=== PATIENT | male | born 1965 | race African-American/Black ===

== ENCOUNTER 2016-07-31 08:22 | Observation (INO) | payer OTHER ==
[2016-07-31] MEDS ORDERED: Aspirin Low Dose CHEW TAB* 81 MG PO ONE (09:14)
--- NOTE | 2016-07-31 09:28 | RAD ---
Indication: Chest pain, shortness of breath. Episodic hot flashes. Comparison: March 27, 2016 Technique: Upright AP 0910 hours Report: Minimal linear atelectasis at the LEFT lung base. Negative for pleural effusion or pneumothorax. Top normal heart size accounting for AP technique. Unremarkable central pulmonary vasculature and mediastinal contours. IMPRESSION: Minimal LEFT basilar atelectasis.
[2016-07-31] MEDS ORDERED: NS 0.9% 1000 ML* 1,000 ML IV SCH (09:45)
[2016-07-31 09:59] LABS: Hematocrit 49 % (42-52); Hemoglobin 16.2 g/dl (14.0-18.0); Mean Corpuscular HGB Conc 33 g/dl (31-36); Mean Corpuscular Hemoglobin 28 pg (27-31); Mean Corpuscular Volume 85 fL (80-94); Mean Platelet Volume 9 um3 (7.4-10.4); Red Blood Count 5.78 10^6/ul (4.0-5.4); Red Cell Distribution Width 14 % (10.5-15); White Blood Count 7.3 10^3/ul (3.5-10.8)
[2016-07-31 10:13] LABS: Albumin 4.1 g/dL (3.2-5.2); BUN/Creatinine Ratio 16.2 (8-20); C Reactive Protein 4.69 mg/L (< 5.00); Calcium 9.1 mg/dL (8.6-10.3); EGFR African American 85.2 (>60); EGFR Non-African American 66.3 (>60); Globulin 3.1 g/dL (2-4); Magnesium 2.3 mg/dL (1.9-2.7); Potassium 3.8 mmol/L (3.5-5.0); Total Bilirubin 0.4 mg/dL (0.2-1.0); Total Protein 7.2 g/dL (6.4-8.9)
[2016-07-31 10:14] LABS: Troponin I 0.01 ng/mL (<0.04)
[2016-07-31 10:43] LABS: TSH (Thyroid Stimulating Horm) 0.72 mcIU/mL (0.34-5.60)
[2016-07-31] MEDS ORDERED: Acetaminophen TAB* 325 MG PO PRN (12:04)
[2016-07-31] MEDS ORDERED: Ondansetron INJ* 2 MG/ML VIAL IV PRN (12:04)
[2016-07-31 12:22] LABS: Urine Bilirubin Negative (Negative); Urine Glucose Negative (Negative); Urine Nitrite Negative (Negative)
--- NOTE | 2016-07-31 15:26 | ED ---
Andrew Bolanos Adam, scribed for Tejinder Johnson MD on 07/31/16 at 0858 . Shortness of Breath - HPI Summary HPI Summary: Pt is a 50 year old male presenting with SOB for the past week. He states that he has been getting more short of breath than usual during light exertion. Yesterday he began experiencing pressure in the left side of his chest that radiates to his left shoulder. The CP has been intermittent, lasting up to 15 minutes. He last felt the CP this morning between 05:00 and 06:00. Pt also c/o intermittent episodes of diaphoresis and palpitations (pounding/racing) that do not seem to be triggered by anything. He also c/o increased fatigue recently and an episode of near syncope several days ago. He denies any fever, chills, diarrhea, constipation, numbness, cough, illness, or edema. Pt has a Hx of GERD but he states that this chest pressure feels different from his usual GERD sx. No Hx of blood clots or DM. FMHx of ME and palpitations. No FMHx of cardiac disease. No tobacco use. - History of Current Complaint Chief Complaint: EDShortnessOfBreath Time Seen by Provider: 07/31/16 08:34 Hx Obtained From: Patient Onset/Duration: Gradual Onset, Lasting Days, Still Present Timing: Constant Current Severity: Moderate Dyspnea At: Exertion Aggrevating Factors: Movement - Light exertion Alleviating Factors: Nothing Associated Signs & Symptoms: Chest Pain Unrelated to Cough, Diaphoresis - Allergy/Home Medications Allergies/Adverse Reactions: Allergies Allergy/AdvReac Type Severity Reaction Status Date / Time No Known Allergies Allergy Verified 07/31/16 08:23 Home Medications: Home Medications Aspirin TAB* 325 mg PO DAILY PRN 07/31/16 [History Confirmed 07/31/16] Omeprazole CAP* [Prilosec CAP* 20 MG] 20 mg PO DAILY 07/31/16 [History Confirmed 07/31/16] PMH/Surg Hx/FS Hx/Imm Hx Endocrine/Hematology History: Denies: Hx Diabetes, Hx Thyroid Disease Cardiovascular History: Reports: Hx Angina, Hx Hypercholesterolemia, Other Cardiovascular Problems/Disorders - HIGH CHOLESTEROL Denies: Hx Hypertension Respiratory History: Denies: Hx Asthma, Hx Chronic Obstructive Pulmonary Disease (COPD) GI History: Reports: Hx Gastroesophageal Reflux Disease Denies: Hx Ulcer Sensory History: 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 Denies: Hx Contacts or Glasses Opthamlomology History: Denies: Hx Contacts or Glasses Psychiatric History: Denies: Hx Substance Abuse - denies - Cancer History Cancer Type, Location and Year: allergies - Surgical History Surgery Procedure, Year, and Place: nose surgery - polyps removed Infectious Disease History: No Infectious Disease History: Denies: Hx Hepatitis, Hx Human Immunodeficiency Virus (HIV), Traveled Outside the [place] in Last 30 Days - Family History Known Family History: Positive: Cardiac Disease - [place] (uncle) - Social History Occupation: Employed Full-time Lives: Alone Alcohol Use: Weekly Alcohol Amount: weekends Hx Substance Use: No Substance Use Type: Reports: None Hx Tobacco Use: No Smoking Status (MU): Never Smoked Tobacco Review of Systems Positive: Fatigue, Skin Diaphoresis. Negative: Fever, Chills Positive: Palpitations, Chest Pain Positive: Shortness Of Breath. Negative: Cough Negative: Diarrhea Negative: Edema Positive: Syncope - Near syncope several days ago. Negative: Numbness All Other Systems Reviewed And Are Negative: Yes Physical Exam Triage Information Reviewed: Yes Vital Signs On Initial Exam: Initial Vitals Temp Pulse Resp BP Pulse Ox 98.3 F 66 18 152/100 99 07/31/16 08:24 07/31/16 08:24 07/31/16 08:24 07/31/16 08:24 07/31/16 08:24 Vital Signs Reviewed: Yes Appearance: Positive: Well-Appearing, No Pain Distress Skin: Positive: Warm, Skin Color Reflects Adequate Perfusion, Dry Head/Face: Positive: Normal Head/Face Inspection Eyes: Positive: EOMI, MARIA E ENT: Positive: Normal ENT inspection Neck: Positive: Supple, Nontender Respiratory/Lung Sounds: Positive: Clear to Auscultation, Breath Sounds Present Cardiovascular: Positive: RRR Abdomen Description: Positive: Soft, Other: - Mild tenderness in the epigastrium Bowel Sounds: Positive: Present Musculoskeletal: Positive: Normal, Strength/ROM Intact Neurological: Positive: Normal, Sensory/Motor Intact, Alert, Oriented to Person Place, Time Psychiatric: Positive: Affect/Mood Appropriate Diagnostics - Vital Signs Vital Signs Temp Pulse Resp BP Pulse Ox 07/31/16 08:24 98.3 F 66 18 152/100 99 - Laboratory Lab Results: Lab Results 07/31/16 07/31/16 07/31/16 Range/Units 09:45 09:45 09:45 WBC 7.3 (3.5-10.8) 10^3/ul RBC 5.78 H (4.0-5.4) 10^6/ul Hgb 16.2 (14.0-18.0) g/dl Hct 49 (42-52) % MCV 85 (80-94) fL MCH 28 (27-31) pg MCHC 33 (31-36) g/dl RDW 14 (10.5-15) % Plt Count 224 (150-450) 10^3/ul MPV 9 (7.4-10.4) um3 Neut % (Auto) 56.4 (38-83) % Lymph % (Auto) 30.4 (25-47) % Pratt % (Auto) 10.4 H (1-9) % Eos % (Auto) 1.9 (0-6) % Baso % (Auto) 0.9 (0-2) % Absolute Neuts (auto) 4.1 (1.5-7.7) 10^3/ul Absolute Lymphs (auto) 2.2 (1.0-4.8) 10^3/ul Absolute Monos (auto) 0.8 (0-0.8) 10^3/ul Absolute Eos (auto) 0.1 (0-0.6) 10^3/ul Absolute Basos (auto) 0.1 (0-0.2) 10^3/ul Absolute Nucleated RBC 0.01 10^3/ul Nucleated RBC % 0.2 INR (Anticoag Therapy) 0.98 (0.89-1.11) APTT 23.6 L (26.0-36.3) seconds D-Dimer, Quantitative < 200 (Less Than 230) ng/mL Sodium 136 (133-145) mmol/L Potassium 3.8 (3.5-5.0) mmol/L Chloride 106 (101-111) mmol/L Carbon Dioxide 24 (22-32) mmol/L Anion Gap 6 (2-11) mmol/L BUN 19 (6-24) mg/dL Creatinine 1.17 (0.67-1.17) mg/dL Est GFR ( Amer) 85.2 (>60) Est GFR (Non-Af Amer) 66.3 (>60) BUN/Creatinine Ratio 16.2 (8-20) Glucose 97 (70-100) mg/dL Lactic Acid (0.5-2.0) mmol/L Calcium 9.1 (8.6-10.3) mg/dL Magnesium 2.3 (1.9-2.7) mg/dL Total Bilirubin 0.40 (0.2-1.0) mg/dL AST 22 (13-39) U/L ALT 24 (7-52) U/L Alkaline Phosphatase 42 (34-104) U/L Total Creatine Kinase 789 H (10-223) U/L CK-MB (CK-2) 5.9 (0.6-6.3) ng/mL Troponin I 0.01 (<0.04) ng/mL C-Reactive Protein 4.69 (< 5.00) mg/L B-Natriuretic Peptide ( - 100) pg/mL Total Protein 7.2 (6.4-8.9) g/dL Albumin 4.1 (3.2-5.2) g/dL Globulin 3.1 (2-4) g/dL Albumin/Globulin Ratio 1.3 (1-3) Lipase 38 (11.0-82.0) U/L TSH 0.72 (0.34-5.60) mcIU/mL 07/31/16 07/31/16 Range/Units 09:45 09:45 WBC (3.5-10.8) 10^3/ul RBC (4.0-5.4) 10^6/ul Hgb (14.0-18.0) g/dl Hct (42-52) % MCV (80-94) fL MCH (27-31) pg MCHC (31-36) g/dl RDW (10.5-15) % Plt Count (150-450) 10^3/ul MPV (7.4-10.4) um3 Neut % (Auto) (38-83) % Lymph % (Auto) (25-47) % Pratt % (Auto) (1-9) % Eos % (Auto) (0-6) % Baso % (Auto) (0-2) % Absolute Neuts (auto) (1.5-7.7) 10^3/ul Absolute Lymphs (auto) (1.0-4.8) 10^3/ul Absolute Monos (auto) (0-0.8) 10^3/ul Absolute Eos (auto) (0-0.6) 10^3/ul Absolute Basos (auto) (0-0.2) 10^3/ul Absolute Nucleated RBC 10^3/ul Nucleated RBC % INR (Anticoag Therapy) (0.89-1.11) APTT (26.0-36.3) seconds D-Dimer, Quantitative (Less Than 230) ng/mL Sodium (133-145) mmol/L Potassium (3.5-5.0) mmol/L Chloride (101-111) mmol/L Carbon Dioxide (22-32) mmol/L Anion Gap (2-11) mmol/L BUN (6-24) mg/dL Creatinine (0.67-1.17) mg/dL Est GFR ( Amer) (>60) Est GFR (Non-Af Amer) (>60) BUN/Creatinine Ratio (8-20) Glucose (70-100) mg/dL Lactic Acid 0.8 (0.5-2.0) mmol/L Calcium (8.6-10.3) mg/dL Magnesium (1.9-2.7) mg/dL Total Bilirubin (0.2-1.0) mg/dL AST (13-39) U/L ALT (7-52) U/L Alkaline Phosphatase (34-104) U/L Total Creatine Kinase (10-223) U/L CK-MB (CK-2) (0.6-6.3) ng/mL Troponin I (<0.04) ng/mL C-Reactive Protein (< 5.00) mg/L B-Natriuretic Peptide 19 ( - 100) pg/mL Total Protein (6.4-8.9) g/dL Albumin (3.2-5.2) g/dL Globulin (2-4) g/dL Albumin/Globulin Ratio (1-3) Lipase (11.0-82.0) U/L TSH (0.34-5.60) mcIU/mL Result Diagrams: 07/31/16 09:45 07/31/16 09:45 Lab Statement: Any lab studies that have been ordered have been reviewed, and results considered in the medical decision making process. - Radiology CXR Radiology Interpretation Completed By: Radiologist - IMPRESSION: Minimal LEFT basilar atelectasis. - EKG 08:27 Cardiac Rate: NL - 62 BPM EKG Rhythm: Sinus Rhythm - Normal EKG Interpretation: Minimum ST elevations in lateral leads. Flipped T in I and AVL. EKG Comparison: No Significant Change - Similar to EKG from 03/27/16 - Additional Comments Diagnostic Additional Comments: Troponin I - 0.01 D-Dimer, Quantitative < 200 Course/Dx - Course Assessment/Plan: DISCUSSED WITH DR CORTEZ. ADMIT HOSPITALIST STABLE. - Diagnoses Provider Diagnoses: Chest pain, Shortness of breath Discharge - Discharge Plan Condition: Stable Disposition: ADMITTED TO [facility] The documentation as recorded by the Andrew weiner Adam accurately reflects the service I personally performed and the decisions made by me, Tejinder Johnson MD.
[2016-07-31] MEDS: Sucralfate TAB* 1 GM PO SCH (17:49)
--- NOTE | 2016-07-31 19:44 | HP ---
HISTORY AND PHYSICAL: DATE OF ADMISSION: 07/31/16 PRIMARY CARE PROVIDER: [facility]. ATTENDING PHYSICIAN WHILE IN THE HOSPITAL: Dr. Geovanni Yeager* (report dictated by Ruel Nogueira NP) CHIEF COMPLAINT: 1. Dyspnea on exertion. 2. Chest tightness. HISTORY OF PRESENT ILLNESS: Mr. Tay is a 50-year-old male patient with history of allergies; hypertension, although he is not on any medications; a history of GERD, comes in to the ER today, who states over the last week or so, he has noticed that he has had progressive worsening dyspnea on exertion. In addition to this, he has been having some chest discomfort and arm and shoulder discomfort on the left side, sometimes noted after exertion. He noted that particular symptom worse today this morning shortly after walking up some stairs and walking down his drive way. He has noticed that with minimal exertion , he becomes tired and he just does not feel well. The patient states that he was concerned and came into the hospital to be evaluated. He also states at times he is having palpitations. He denies having any nausea or vomiting. He does state that at times, he does get a burning sensation in his chest. He does note that he has a significant history of GERD. He states that as the symptoms were not getting better, he was evaluated, the ER physician was concerned that this could represent acute coronary syndrome, the hospitalist service was asked evaluate for admission. PAST MEDICAL HISTORY: Significant for: 1. Seasonal allergies. 2. Hypertension. 3. GERD. PAST SURGICAL HISTORY: He has had sinus surgery. MEDICATIONS: Home medications include: 1. Aspirin 325 mg daily. 2. Prilosec 20 mg daily. ALLERGIES TO MEDICATIONS: Include no known drug allergies. FAMILY HISTORY: Reviewed and noncontributory. SOCIAL HISTORY: He does not smoke, he does not drink. He is single. Surrogate decision maker is his mother, Perri. 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 REVIEW OF SYSTEMS: There is no documented fever. He denied having any significant weight change. There was no double vision. There is no ear discharge. He denies having any rhinorrhea. No sore throat. No thyroid enlargement. There was chest pain per my HPI. There is no orthopnea, no nocturnal dyspnea. There is no abdominal pain. There is no dysuria, no frequency. No loss of consciousness. No pruritus, no skin ulcerations. Review of 14 systems was completed, all others negative. PHYSICAL EXAMINATION GENERAL: At this time, Mr. Tay is a 50-year-old male patient, who appears well- nourished, well-developed, does not appear to be in any acute distress. VITAL SIGNS: Reveal blood pressure 132/86, pulse of 57, respirations 18, O2 sat 97%, temperature 98.3. HEENT: Head: Atraumatic, normocephalic. Eyes: EOMs are intact. Sclerae anicteric and not pale. Throat: Oral mucosa appears to be moist. No oropharyngeal erythema. NECK: Supple. LUNGS: Clear to auscultation bilaterally. No wheezes, rales, or rhonchi. HEART: Heart sounds S1 and S2. Regular rate and rhythm. No murmurs, rubs, or gallops. ABDOMEN: Soft, flat, and nontender. Bowel sounds are present. EXTREMITIES: Pulses 2+ throughout. Able to move all four extremities with 5/5 strength. NEUROLOGIC: The patient is awake, he is alert and oriented x3. Tongue midline. Rd Manager were equal. No gross focal deficits. SKIN: Intact. DIAGNOSTIC STUDIES/LAB DATA: Today revealed a WBC of 7.3, RBC of 5.78, hemoglobin 16.2, hematocrit of 49, platelet count of 224. INR was 0.98, the PTT was 23.6, D- dimer was less than 200. He had a sodium of 136, chloride of 106, bicarb 24, BUN 19, creatinine 1.17, glucose 97, lactate 0.8, calcium 9.1. AST 22, ALT 24. CK 789, CK-MB 5.9. Troponin 0.01. CRP of 4.69. BNP of 19. TSH of 0.72. Urine is pending. He had an EKG obtained today, which showed a normal sinus rhythm. He had what appears to be inverted T waves in lead I and aVL, which he has had in the past. He did have some slight elevation in V1 and V2 and but it looks like J-point elevation. It was compared to the previous EKG, to me it appears to be similar. He had a chest x-ray obtained today, which revealed mild left basilar atelectasis. Old medical records were reviewed. ASSESSMENT AND PLAN: Mr. Tay is a 50-year-old male patient coming into the ER today with complaints of dyspnea on exertion, decreased exercise tolerance, and arm and chest discomfort. He will be admitted under observation status for: 1. Chest discomfort, dyspnea on exertion. At this point, I do feel that the patient warrants a stress test, serial troponins, EKG, lipid panel, A1c, and I am also going to get an echo to really assess the LV function. He does have a history of hypertension, but not on any medications, so I am wondering, let us see what his LV looks like and I think a stress test is appropriate and continue to follow. 2. Gastroesophageal reflux disease. I will put him on PPI and Carafate for the time being. 3. DVT prophylaxis. He will be placed on SCDs. 4. Fluids, electrolytes, nutrition. He can have a heart-healthy diet. 5. Code status. Full code. TIME SPENT: On the admission 60 minutes, greater than half the time was spent face- to-face with the patient obtaining my history and physical, other half the time was spent going over the plan of care with the patient and implementing the plan of care. I did discuss the plan of care with my attending ; Dr. Yeager; he is in agreement. RUEL NOGUEIRA NP CC: [facility] [id number]/[facility] #: [id number] EAN
[2016-08-01 05:48] LABS: Hematocrit 49 % (42-52); Hemoglobin 15.9 g/dl (14.0-18.0); Mean Corpuscular HGB Conc 33 g/dl (31-36); Mean Corpuscular Hemoglobin 28 pg (27-31); Mean Corpuscular Volume 85 fL (80-94); Mean Platelet Volume 9 um3 (7.4-10.4); Red Blood Count 5.72 10^6/ul (4.0-5.4); Red Cell Distribution Width 14 % (10.5-15); White Blood Count 7.2 10^3/ul (3.5-10.8)
[2016-08-01] MEDS ORDERED: Omeprazole CAP* 20 MG PO SCH (06:00)
[2016-08-01 06:06] LABS: BUN/Creatinine Ratio 12.1 (8-20); Calcium 9.2 mg/dL (8.6-10.3); EGFR African American 86.1 (>60); EGFR Non-African American 66.9 (>60); HDL Cholesterol 44.4 mg/dL; Potassium 4.1 mmol/L (3.5-5.0)
[2016-08-01] MEDS ORDERED: Aspirin Low Dose CHEW TAB* 81 MG PO SCH (09:00)
[2016-08-01] MEDS ORDERED: Aminophylline IV* 25 MG/ML 10 ML VIAL ONE (09:01)
[2016-08-01] MEDS ORDERED: Regadenoson* 0.4 MG/5 ML SYRINGE ONE (09:01)
[2016-08-01] MEDS: Sucralfate TAB* 1 GM PO SCH ×2 (10:34→13:51)
--- NOTE | 2016-08-01 10:50 | RAD ---
Edited for charges. Indication: Chest pain, dyspnea on exertion. Myocardial perfusion scan was performed utilizing 1 day protocol. 10.99 mCi of technetium 99m tetrofosmin was injected for the rest portion of the study. 25.7 mCi of technetium 99m tetrofosmin was injected for the stress portion of study after pharmacological stress was given. There is homogeneous distribution of the radiotracer throughout the left ventricle. There is no evidence of fixed or reversible perfusion defects. There may be some minimal apical thinning noted. The ejection fraction at stress is 67%. No evidence of focal wall motion abnormality is identified. IMPRESSION: No fixed or reversible perfusion defect is identified. ASSESSMENT: Low risk Based on imaging criteria from ACC/AHA 2002 Guideline Update for the Management of Patients With Chronic Stable Angina Table 23. Noninvasive Risk Stratification. MTDD
[2016-08-01 12:00] VITALS: BP 164/102
[2016-08-01] MEDS ORDERED: Hydrochlorothiazide TAB* 25 MG PO SCH (15:00)
--- NOTE | 2016-08-01 15:51 | DCNOTE ---
Patient seen in the afternoon. Had some visual changes and significant HTN during exercise stress test, converted to chemical. Reports feeling well now. No chest pain or SOB. On exam, RRR, prominent heart sounds, no m/g/r, lungs CTA B/L, no w/r/r Symptoms felt to be due to HTN. Discharge home on HCTZ. F/U with PCP.
--- NOTE | 2016-08-01 17:55 | ECHO ---
Patient: CHELE IYER [facility] Rec#: [id number] : 1965 Date: 08/01/2016 Age: 50y Height: 180 cm / 70.9 in Weight: 104 kg / 229.2 lbs Sex: M BSA: 2.23 Room#: [facility] Admit Date#: 07/31/2016 Type: Inpatient Referring: Ruel Wen NP Reading: Trent Pearl DO Seed Analyst: Maik Barrios RDCS Transthoracic Echocardiogram Indication: PEPE CHEST PAIN BP: 126/71 HR: 59 Rhythm: NSR Findings History: GERD,HLD Technical Comments: The study quality is good. Completed 1600 Left Ventricle: The left ventricular chamber size is normal. Mild to moderate concentric left ventricular hypertrophy is observed. Global left ventricular wall motion and contractility are within normal limits. There is normal left ventricular systolic function. The estimated ejection fraction is 55-60%. The assessment of diastolic function is non-diagnostic. Left Atrium: The left atrium is mildly dilated. Right Ventricle: The right ventricular chamber size and systolic function are within normal limits. Right Atrium: The right atrial cavity size is normal. Aortic Valve: The aortic valve is trileaflet. There is no evidence of aortic regurgitation. There is no evidence of aortic stenosis. Mitral Valve: The mitral valve leaflets appear normal. There is no evidence of mitral regurgitation. There is no evidence of mitral stenosis. Tricuspid Valve: The tricuspid valve appears normal in structure and function. There is trace tricuspid regurgitation. No pulmonary hypertension is noted. Pulmonic Valve: The pulmonic valve appears normal. There is a trace pulmonic regurgitation. There is no pulmonic stenosis. Pericardium: There is no significant pericardial effusion. Aorta: There is no dilatation of the ascending aorta. There is no dilatation of the aortic arch. There is no dilation of the aortic root. Pulmonary Artery: The main pulmonary artery is not well visualized. Venous: The inferior vena cava appears normal in size. There is a greater than 50% respiratory change in the inferior vena cava dimension. Conclusions The left ventricular chamber size is normal. Mild to moderate concentric left ventricular hypertrophy is observed. Global left ventricular wall motion and contractility are within normal limits. There is normal left ventricular systolic function. The estimated ejection fraction is 55-60%. The left atrium is mildly dilated. The right ventricular chamber size and systolic function are within normal limits. No significant valvular abnormalities noted No prior studies available for comparison. Measurements Name Value Normal Range RVIDd (AP) 2D 2.6 cm (0.9 - 2.6) RVDdMajor (2D) 2.7 cm (2.2 - 4.4) RAd ISD 4CH 5.1 cm (3.4 - 4.9) RA (A4C)W 3.7 cm (2.9 - 4.6) IVSd (2D) 1.4 cm (0.6 - 1) LVPWd (2D) 1.3 cm (0.6 - 1) LVIDd (2D) 5.6 cm (3.6 - 5.4) LVIDs (2D) 3.9 cm - LV FS (2D) 31 % (25 - 45) Aortic Annulus 2 cm (1.4 - 2.6) Ao root diameter (2D) 2.9 cm (2.1 - 3.5) Ascending Ao 3.3 cm (2.1 - 3.4) Aortic arch 2.6 cm (1.8 - 3.4) LA dimension (AP) 2D 4.4 cm (2.3 - 3.8) LAd ISD 4CH 6.3 cm (2.9 - 5.3) LA ISD 4CH W 3.4 cm (2.5 - 4.5) Name Value Normal Range LA ESV SP 4CH (A/L) 54 ml - LA ESV SP 2CH (A/L) 107 ml - LA ESV BP (A/L) 77 ml - LA ESV BP (A/L) index 34.22 ml/m2 - LA ESV SP 4CH (MOD) 49 ml - LA ESV SP 2CH (MOD) 95 ml - Name Value Normal Range MV E-wave Vmax 0.54 m/sec - MV deceleration time 229 msec - MV A-wave Vmax 0.66 m/sec - MV E:A ratio 0.81 ratio - LV septal e' Vmax 0.08 m/sec - LV lateral e' Vmax 0.1 m/sec - LV E:e' septal ratio 6.75 ratio - LV E:e' lateral ratio 5.4 ratio - Name Value Normal Range LVOT diameter 2.2 cm - LVOT Vmax 1.2 m/sec - Name Value Normal Range IVC diameter 1.66 cm - Name Value Normal Range PV Vmax 0.9 m/sec -
--- NOTE | 2016-08-02 10:50 | DS ---
DISCHARGE SUMMARY: DATE OF ADMISSION: 07/31/16 DATE OF DISCHARGE: 08/01/16 [facility] PRINCIPAL DISCHARGE DIAGNOSIS: 1. Dyspnea on exertion. 2. Hypertension. SECONDARY DIAGNOSIS: Gastroesophageal reflux disease. DISCHARGE MEDICATION REGIMEN: 1. Hydrochlorothiazide 12.5 mg by mouth daily. 2. Omeprazole 20 mg by mouth daily. STUDIES DONE DURING HOSPITALIZATION: Chest x-ray, impression: Minimal left basilar atelectasis. Nuclear cardiac stress test, impression: No fixed or irreversible perfusion defect is identified. Assessment: Low risk. Echocardiogram, left ventricle chamber size is normal, [id number] concentric LVH, global left ventricular wall motion and contractility are within normal limits, normal left ventricular systolic function with an EF of 55 % to 60%, mildly dilated left atrium, right ventricular chamber size and systolic function are within normal limits. No significant Doppler abnormalities noted. HISTORY OF PRESENT ILLNESS/HOSPITAL COURSE: Please see the history and physical by Ruel Wen NP, for full details. Briefly, Mr. Tay is a 50- year-old man with a past medical history as above, who presented to the hospital with progressive dyspnea on exertion, as well as more recently some chest discomfort that also involved the arm and the neck. The patient was admitted to the hospital. He had an unchanged EKG. His troponins were trended which remained negative. He was evaluated by Cardiology with a nuclear stress test where he had some mild recurrence of his symptoms on the exercise stress and needed to be transitioned to a chemical due to hypertension during the exam. The nuclear stress test as above was read as negative. He also underwent an echocardiogram that was largely normal. It was felt that his symptoms were likely due to hypertension. He will be started on thiazide diuretic and follow up with his PCP as an outpatient. TIME SPENT: Total time spent on this discharge, 45 minutes. This is a summary of the hospitalization; please see the full medical record for further details. [id number]/[facility] #: [id number] [facility]
== END 2016-08-01 16:13 | disposition home or self-care (01) ==
LOC: ED 08:22 → MEDTELE 11:22
PROVIDERS: ADMIT Internal Medicine; ATTEND Hospitalist
DX: R06.09 Other forms of dyspnea (principal); R07.89 Other chest pain; I10 Essential (primary) hypertension; K21.9 Gastro-esophageal reflux disease without esophagitis; Z79.82 Long term (current) use of aspirin
CPT/HCPCS: 36415; 71010; 78452; 80048; 80053; 80061; 81003; 82550; 82553; 83036; 83605; 83690; 83735; 83880; 84443; 84484; 85025; 85379; 85610; 85730; 86140; 93005; 93017; 96360; 99284; A9270-GY; A9502; G0378; J0280; J2785

== ENCOUNTER 2016-09-26 15:25 | Emergency (ER) | payer OTHER ==
[2016-09-26 15:37] VITALS: BP 151/94
--- NOTE | 2016-09-26 16:43 | RAD ---
HISTORY: Blood pressure, visual changes COMPARISONS: None TECHNIQUE: Multiple contiguous axial CT scans were obtained of the head without intravenous contrast. FINDINGS: HEMORRHAGE/INFARCT: There is no hemorrhage or acute infarct. MASSES/SHIFT: There is no mass or shift. EXTRA-AXIAL SPACES: There are no extra-axial fluid collections. SULCI AND VENTRICLES: The sulci and ventricles are normal in size and position for the patient's stated age. CEREBRUM: There are no focal parenchymal abnormalities. BRAINSTEM: There are no focal parenchymal abnormalities. CEREBELLUM: There are no focal parenchymal abnormalities. VESSELS: The vessels are grossly normal. PARANASAL SINUSES: The paranasal sinuses are clear. ORBITS: The orbits are unremarkable. BONES AND SOFT TISSUE: No bone or soft tissue abnormalities are noted. OTHER: None IMPRESSION: NO ACUTE INTRACRANIAL PATHOLOGY.
[2016-09-27 13:55] LABS: BUN/Creatinine Ratio 12.9 (8-20); Calcium 9.9 mg/dL (8.6-10.3); EGFR African American 69.6 (>60); EGFR Non-African American 54.1 (>60); Magnesium 2.3 mg/dL (1.9-2.7); Potassium 4.2 mmol/L (3.5-5.0)
--- NOTE | 2016-09-28 16:19 | UC ---
Anthony Bolanos Michael, scribed for Jennyfer Herrera MD on 09/26/16 at 1607 . General HPI - HPI Summary HPI Summary: 51 y/o male comes to the ED presenting with blurred vision for the last week that has worsened today at 1100. The pt reports that he saw 10-12 spots in his vision today. He states it is worse in the left eye than the right eye. Currently, he has spots in his vision. The pt visited to have an eye exam , and the exam was benign. The pt denies ROSA. The PMHx is significant for HTN and GERD. He was dx with HTN 2 months ago and was started on medication by Dr. Villalba. When the medication was first started, the pt had occipital ROSA and fatigue, and now he has acclimated to the medication. He was also dx with URI one week ago and currently has no symptoms. - History of Current Complaint Chief Complaint: UCGeneralIllness Stated Complaint: HIGH BLOOD PRESSURE, AND SEEING SPOTS Time Seen by Provider: 09/26/16 15:40 Hx Obtained From: Patient, Medical Records Onset/Duration: Sudden Onset, Still Present, Worse Since - today Timing: Intermittent Episodes Lasting: Onset Severity: Mild Current Severity: Moderate Pain Intensity: 0 Aggravating: spontaneous Alleviating: spontaneous resolution Associated Signs & Symptoms: Positive: Other - blurred vision. Negative: Headache - Allergy/Home Medications Allergies/Adverse Reactions: Allergies Allergy/AdvReac Type Severity Reaction Status Date / Time No Known Allergies Allergy Verified 07/31/16 08:23 PMH/Surg Hx/FS Hx/Imm Hx Previously Healthy: No - see hpi Endocrine History Of: Denies: Diabetes, Thyroid Disease Cardiovascular History Of: Reports: Hypertension Denies: Cardiac Disorders, Myocardial Infarction Respiratory History Of: Denies: COPD, Asthma GI/ History Of: Reports: Gastroesophageal Reflux Denies: Ulcer - Surgical History Surgical History: Yes Surgery Procedure, Year, and Place: nose surgery - polyps removed - Family History Known Family History: Positive: Cardiac Disease - [place] (uncle) Negative: Diabetes - Social History Occupation: Employed Full-time Lives: Alone Alcohol Use: Weekly Alcohol Amount: weekends Substance Use Type: None Smoking Status (MU): Never Smoked Tobacco - Immunization History Most Recent Influenza Vaccination: NEVER & DECLINES Most Recent Tetanus Shot: UP TO DATE Most Recent Pneumonia Vaccination: NEVER & DECLINES Review of Systems Eyes: Blurred Vision Neurological: Negative - ROSA All Other Systems Reviewed And Are Negative: Yes Physical Exam Triage Information Reviewed: Yes Appearance: Well-Nourished Vital Signs: Initial Vital Signs Temp 97.8 F 09/26/16 15:31 Pulse 65 09/26/16 15:31 Resp 18 09/26/16 15:31 BP 151/94 09/26/16 15:31 Pulse Ox 98 09/26/16 15:31 Vital Signs Reviewed: Yes Eye Exam: Normal - double vision point at 8 inches ENT: Positive: Normal ENT inspection, TMs normal Respiratory Exam: Normal Respiratory: Positive: Chest non-tender, Lungs clear, Normal breath sounds, No respiratory distress, Other: - no dyspnea. no tachypnea. normal respiratyor rate. Cardiovascular Exam: Normal Cardiovascular: Positive: RRR, No Murmur, Pulses Normal, Brisk Capillary Refill Abdominal Exam: Normal Abdomen Description: Positive: Nontender, No Organomegaly, Soft Bowel Sounds: Positive: Present Musculoskeletal Exam: Normal Musculoskeletal: Positive: Strength Intact Neurological Exam: Normal - CN 1(alcohol swab) - 12 intact Gait steady. No nystagmus. Speech clear and appropriate. Psychological Exam: Normal - conversing easily Psychological: Positive: Age Appropriate Behavior Skin Exam: Normal - no visible or reported rash Diagnostics - Laboratory Diagnostic Studies Completed/Ordered: Brain CT: Radiologist- No acute intracaranial pathology. - EKG Cardiac Rhythm: Sinus: Normal - 66 bpm. QTc 433. Incomplete RBBB and LAFB. Probable right ventricular hypertrophy. Nonspecific T abnormalities, lateral leads. Minimal St elevation, anterior leads. Similar to EKG on 07/31/16 Course/Dx - Course Course Of Treatment: CT brain noted - nonactionable. EKG noted, similar to ekg Jul 2016. No new problems while in [facility]. Will f/u with pcp as scheduled 07 October, sooner if earlier appt available. Advised to go to the ED for worse or new problems. Labs ordered. See AVS. - Differential Dx - Multi-Symptom Provider Diagnoses: Hypertension Discharge - Discharge Plan Condition: Stable Disposition: HOME Patient Education Materials: Hypertension (ED) Referrals: Zander Villalba MD [Primary Care Provider] - Additional Instructions: Follow up with Dr. Villalba as scheduled. Blood tests today: BMP, Magnesium EKG today CT brain today Seek medical attention sooner for worse or new problems. The documentation as recorded by the ezekielibeAnthony Michael accurately reflects the service I personally performed and the decisions made by me, Jennyfer Herrera MD.
== END 2016-09-26 17:25 | disposition home or self-care (01) ==
LOC: UCEAST 15:25
DX: I10 Essential (primary) hypertension (principal); K21.9 Gastro-esophageal reflux disease without esophagitis
CPT/HCPCS: 36415; 70450; 80048; 83735; 99211; G0463

== ENCOUNTER 2017-05-30 00:54 | Emergency (ER) | payer OTHER ==
[2017-05-30] MEDS ORDERED: Aspirin Low Dose CHEW TAB* 81 MG PO ONE (01:29)
[2017-05-30] MEDS ORDERED: Pantoprazole IV* 40 MG IV ONE (01:31)
[2017-05-30 01:41] LABS: Hematocrit 47 % (42-52); Hemoglobin 15.4 g/dl (14.0-18.0); Mean Corpuscular HGB Conc 33 g/dl (31-36); Mean Corpuscular Hemoglobin 28 pg (27-31); Mean Corpuscular Volume 84 fL (80-94); Mean Platelet Volume 8 um3 (7.4-10.4); Red Blood Count 5.53 10^6/ul (4.0-5.4); Red Cell Distribution Width 14 % (10.5-15); White Blood Count 6.4 10^3/ul (3.5-10.8)
[2017-05-30] MEDS ORDERED: Al Hydrox/Mg Hydrox/Simet LIQ* 30 ML UDC PO ONE (01:55)
[2017-05-30] MEDS ORDERED: Lidocaine 2% VISCOUS* 15 ML UDC PO ONE (01:55)
[2017-05-30] MEDS ORDERED: SCOP/HYOS/ATR/PB(NF) 10 ML UDC PO ONE (01:56)
[2017-05-30 02:04] LABS: Albumin 4.3 g/dL (3.2-5.2); BUN/Creatinine Ratio 15.4 (8-20); Calcium 9.6 mg/dL (8.6-10.3); EGFR African American 71.3 (>60); EGFR Non-African American 55.5 (>60); Globulin 3.1 g/dL (2-4); Magnesium 2.2 mg/dL (1.9-2.7); Potassium 3.8 mmol/L (3.5-5.0); Total Bilirubin 0.3 mg/dL (0.2-1.0); Total Protein 7.4 g/dL (6.4-8.9)
--- NOTE | 2017-05-30 06:20 | ED ---
Cecil Bolanos Natalie, scribed for Iain Mcdonald MD on 05/30/17 at 0140 . HPI Chest Pain - HPI Summary HPI Summary: The pt is a 51 y/o M presenting to the ED c/o central chest tightness with onset during sexual intercourse that began 20 minutes prior to arrival. The pain does not radiate, and he has no pain in the ED. Pt additionally c/o diaphoresis, some SOB, and vomiting. Pt denies nausea in the ED. He takes Hydralazine and Hydrochlorothiazide for HTN. His last stress test was a year ago. - History of Current Complaint Chief Complaint: EDChestPainROMI Time Seen by Provider: 05/30/17 01:21 Hx Obtained From: Patient Onset/Duration: Started Minutes Ago - 20 minutes before arrival, Resolved Timing: Lasting Minutes - for 20 minutes Initial Severity: Moderate Current Severity: None Pain Intensity: 6 Pain Scale Used: 0-10 Numeric Chest Pain Location: Mid Sternal Chest Pain Radiates: No Character: Tightness Aggravating Factor(s): Nothing Alleviating Factor(s): Spontaneous Resolution Associated Signs and Symptoms: Positive: Shortness of Breath, Diaphoresis, Vomiting. Negative: Nausea - Additional Pertinent History Primary Care Physician: [id number] - Allergy/Home Medications Allergies/Adverse Reactions: Allergies Allergy/AdvReac Type Severity Reaction Status Date / Time No Known Allergies Allergy Verified 07/31/16 08:23 PMH/Surg Hx/FS Hx/Imm Hx Previously Healthy: No Endocrine/Hematology History: Denies: Hx Diabetes, Hx Thyroid Disease Cardiovascular History: Reports: Hx Angina, Hx Hypercholesterolemia, Hx Hypertension, Other Cardiovascular Problems/Disorders - HIGH CHOLESTEROL Denies: Hx Coronary Artery Disease, Hx Myocardial Infarction, Hx Valvular Heart Disease Respiratory History: Denies: Hx Asthma, Hx Chronic Obstructive Pulmonary Disease (COPD) GI History: Reports: Hx Gastroesophageal Reflux Disease Denies: Hx Ulcer Sensory History: 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 Denies: Hx Contacts or Glasses Opthamlomology History: Denies: Hx Contacts or Glasses Psychiatric History: Denies: Hx Substance Abuse - denies - Cancer History Cancer Type, Location and Year: allergies - Surgical History Surgery Procedure, Year, and Place: nose surgery - polyps removed Hx Anesthesia Reactions: No - Immunization History Date of Tetanus Vaccine: up to date Date of Influenza Vaccine: years ago Infectious Disease History: No Infectious Disease History: Denies: Hx Hepatitis, Hx Human Immunodeficiency Virus (HIV), Hx of Known/ Suspected MRSA, Traveled Outside the [place] in Last 30 Days - Family History Known Family History: Positive: Cardiac Disease - [place] (uncle) Negative: Diabetes - Social History Occupation: Employed Full-time Lives: With Family Alcohol Use: Weekly Alcohol Amount: weekends Hx Substance Use: No Substance Use Type: Reports: None Hx Tobacco Use: No Smoking Status (MU): Never Smoked Tobacco Review of Systems Positive: Skin Diaphoresis Positive: Chest Pain - tightness Positive: Shortness Of Breath Positive: Vomiting. Negative: Nausea All Other Systems Reviewed And Are Negative: Yes Physical Exam - Summary Physical Exam Summary: VITAL SIGNS: Reviewed. GENERAL: Patient is a well-developed and nourished male who is lying comfortable in the stretcher. Patient is not in any acute respiratory distress. HEAD AND FACE: No signs of trauma. No ecchymosis, hematomas or skull depressions. No sinus tenderness. EYES: PERRLA, EOMI x 2, No injected conjunctiva, no nystagmus. EARS: Hearing grossly intact. Ear canals and tympanic membranes are within normal limits. MOUTH: Oropharynx within normal limits. NECK: Supple, trachea is midline, no adenopathy, no JVD, no carotid bruit, no c- spine tenderness, neck with full ROM. CHEST: Symmetric, no tenderness at palpation LUNGS: Clear to auscultation bilaterally. No wheezing or crackles. CVS: Regular rate and rhythm, S1 and S2 present, no murmurs or gallops appreciated. ABDOMEN: Soft, non-tender. No signs of distention. No rebound no guarding, and no masses palpated. Bowel sounds are normal. EXTREMITIES: FROM in all major joints, no edema, no cyanosis or clubbing. NEURO: Alert and oriented x 3. No acute neurological deficits. Speech is normal and follows commands. SKIN: Dry and warm Triage Information Reviewed: Yes Vital Signs On Initial Exam: Initial Vitals Temp Pulse Resp BP Pulse Ox 98.7 F 110 20 122/86 94 05/30/17 00:59 05/30/17 00:59 05/30/17 00:59 05/30/17 00:59 05/30/17 00:59 Vital Signs Reviewed: Yes Diagnostics - Vital Signs Vital Signs Temp Pulse Resp BP Pulse Ox 05/30/17 00:59 98.7 F 110 20 122/86 94 - Laboratory Result Diagrams: 05/30/17 01:32 05/30/17 01:32 Lab Statement: Any lab studies that have been ordered have been reviewed, and results considered in the medical decision making process. - Radiology CXR Xray Interpretation: No Acute Changes - Nml Xray Radiology Interpretation Completed By: ED Physician - EKG 01:02 Cardiac Rate: Tachycardia EKG Rhythm: Sinus Tachycardia EKG Interpretation: Normal axis. Normal intervals. TWI in I and AVL (old compared to Jul 2016) Re-Evaluation - Re-Evaluation First Eval Re-Evaluation Time: 02:23 Change: Unchanged Comment: The patient states that he feels better and wants to go home. He thinks his pain was acid reflux. However, his risk factors are concerning for a coronary event, given his age, sex, and history of HTN. I gave the patient the option for admission to the hospitalists or to stay for four hours to repeat his troponin. The patient decided to stay to repeat the troponin. Chest Pain Course/Dx - Course Assessment/Plan: The second troponin is normal. The patient's EKG has no new changes. The patient was advised to follow up with PMD in order to schedule a stress test. - Diagnoses Provider Diagnoses: Chest pain Discharge - Discharge Plan Condition: Stable Disposition: HOME Patient Education Materials: Chest Pain (ED) Referrals: Zander Villalba MD [Primary Care Provider] - As Soon As Possible Additional Instructions: Follow up with your primary care physician as soon as possible in order to schedule a stress test. The documentation as recorded by the Cecil weiner Natalie accurately reflects the service I personally performed and the decisions made by me, Iain Mcdonald MD.
[2017-05-30 06:30] VITALS: BP 127/67
--- NOTE | 2017-05-30 09:48 | RAD ---
INDICATION: Chest pain COMPARISON: None. TECHNIQUE: Single AP portable view of the chest was obtained. FINDINGS: Image quality is compromised due to the relative inferiority of a portable chest x-ray. The heart and mediastinum exhibit normal size and contour. The lungs are grossly clear. There is no evidence of a large pleural effusion. Visualized bones are normal for the patient's age. IMPRESSION: No radiographic evidence for acute cardiopulmonary abnormality on this portable chest x-ray.
== END 2017-05-30 06:33 | disposition home or self-care (01) ==
LOC: ED 00:54
DX: R07.9 Chest pain, unspecified (principal); I10 Essential (primary) hypertension; E78.00 Pure hypercholesterolemia, unspecified; K21.9 Gastro-esophageal reflux disease without esophagitis; H91.92 Unspecified hearing loss, left ear
CPT/HCPCS: 36415; 71010; 80053; 83735; 84484; 85025; 85610; 85730; 93005; 96374; 99284; A9270-GY

== ENCOUNTER 2018-07-13 16:49 | Observation (INO) | payer OTHER ==
[2018-07-13] MEDS ORDERED: Aspirin 81 mg CHEW TAB* 81 MG TAB.CHEW PO ONE (17:03)
[2018-07-13] MEDS ORDERED: Nitroglycerin TAB 0.4 MG* 0.4 MG TAB SL ONE (17:03)
[2018-07-13] MEDS ORDERED: Metoprolol Tartrate TAB* 25 MG PO ONE (17:03)
--- NOTE | 2018-07-13 17:13 | ED ---
HPI Chest Pain - HPI Summary HPI Summary: This pt is a 52 y/o male presenting to [facility] c/o chest pain today. Pt reports he started to feel pressure on his chest after work today. He notes that initially chest pain felt as if he wanted to belch but overtime it became worse. Currently he describes chest pressure "like someone is sitting on top of chest." Additional symptoms include SOB and lightheadedness, feeling like passing out. Denies fever, chills, nausea, diaphoresis, feeling clammy. Pt admits to occasional alcohol and tobacco use. Denies drug use. - History of Current Complaint Chief Complaint: EDChestPainROMI Time Seen by Provider: 07/13/18 16:56 Hx Obtained From: Patient Onset/Duration: Started Hours Ago, Still Present Timing: Lasting Hours Current Severity: Severe Pain Intensity: 10 Pain Scale Used: 0-10 Numeric Chest Pain Location: Mid Sternal Chest Pain Radiates: No Character: Pressure/Squeezing - Pressure Aggravating Factor(s): Nothing Alleviating Factor(s): Nothing Associated Signs and Symptoms: Positive: Chest Pain, Shortness of Breath, Lightheadedness. Negative: Fever, Chills, Diaphoresis, Nausea, Other: - NEG: clammy - Additional Pertinent History Primary Care Physician: VU - Allergy/Home Medications Allergies/Adverse Reactions: Allergies Allergy/AdvReac Type Severity Reaction Status Date / Time No Known Allergies Allergy Verified 07/13/18 16:55 Home Medications: Home Medications Losartan TAB* [Cozaar TAB*] 50 mg PO DAILY 07/13/18 [History Confirmed 07/13/18] Omeprazole CAP (NF) [Prilosec CAP* 20 MG] 20 mg PO DAILY 07/13/18 [History Confirmed 07/13/18] PMH/Surg Hx/FS Hx/Imm Hx Endocrine/Hematology History: Denies: Hx Diabetes, Hx Thyroid Disease Cardiovascular History: Reports: Hx Angina, Hx Hypercholesterolemia, Hx Hypertension, Other Cardiovascular Problems/Disorders - HIGH CHOLESTEROL Denies: Hx Coronary Artery Disease, Hx Myocardial Infarction, Hx Valvular Heart Disease Respiratory History: Denies: Hx Asthma, Hx Chronic Obstructive Pulmonary Disease (COPD) GI History: Reports: Hx Gastroesophageal Reflux Disease Denies: Hx Ulcer Sensory History: 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 Denies: Hx Contacts or Glasses Opthamlomology History: Denies: Hx Contacts or Glasses Psychiatric History: Denies: Hx Substance Abuse - denies - Cancer History Cancer Type, Location and Year: allergies - Surgical History Surgery Procedure, Year, and Place: nose surgery - polyps removed Hx Anesthesia Reactions: No - Immunization History Date of Tetanus Vaccine: up to date Date of Influenza Vaccine: years ago Infectious Disease History: No Infectious Disease History: Denies: Hx Hepatitis, Hx Human Immunodeficiency Virus (HIV), Hx of Known/ Suspected MRSA, Traveled Outside the [place] in Last 30 Days - Family History Known Family History: Positive: Cardiac Disease - [place] (uncle) Negative: Diabetes - Social History Alcohol Use: Weekly Alcohol Amount: weekends Hx Substance Use: No Substance Use Type: Reports: None Hx Tobacco Use: No Smoking Status (MU): Never Smoked Tobacco Review of Systems Negative: Fever, Chills, Skin Diaphoresis, Other - NEG: clammy Positive: Chest Pain Positive: Shortness Of Breath Negative: Nausea Neurological: Other - POS: lightheadedness All Other Systems Reviewed And Are Negative: Yes Physical Exam - Summary Physical Exam Summary: VITAL SIGNS: Reviewed. GENERAL: Patient is a well-developed and nourished male. Patient is in distress secondary to chest pain. HEAD AND FACE: No signs of trauma. No ecchymosis, hematomas or skull depressions. No sinus tenderness. EYES: PERRLA, EOMI x 2, No injected conjunctiva, no nystagmus. EARS: Hearing grossly intact. Ear canals and tympanic membranes are within normal limits. MOUTH: Oropharynx within normal limits. NECK: Supple, trachea is midline, no adenopathy, no JVD, no carotid bruit, no c- spine tenderness, neck with full ROM. CHEST: Symmetric, non reproducible chest pain. LUNGS: Clear to auscultation bilaterally. No wheezing or crackles. CVS: Regular rate and rhythm, S1 and S2 present, no murmurs or gallops appreciated. ABDOMEN: Soft, non-tender. No signs of distention. No rebound, no guarding, and no masses palpated. Bowel sounds are normal. EXTREMITIES: FROM in all major joints, no edema, no cyanosis or clubbing. NEURO: Alert and oriented x 3. No acute neurological deficits. Speech is normal and follows commands. SKIN: Dry and warm Triage Information Reviewed: Yes Vital Signs On Initial Exam: Initial Vitals Temp Pulse Resp BP Pulse Ox 98 F 92 18 144/99 98 07/13/18 16:51 07/13/18 16:51 07/13/18 16:51 07/13/18 16:51 07/13/18 16:51 Vital Signs Reviewed: Yes Diagnostics - Vital Signs Vital Signs Temp Pulse Resp BP Pulse Ox 07/13/18 16:51 98 F 92 18 144/99 98 - Laboratory Result Diagrams: 07/14/18 05:59 07/14/18 05:59 Lab Statement: Any lab studies that have been ordered have been reviewed, and results considered in the medical decision making process. - Radiology Chest XR Radiology Interpretation Completed By: Radiologist Summary of Radiographic Findings: IMPRESSION: No evidence for acute disease. Dr. Miller has reviewed this report. - EKG 17:01 Cardiac Rate: NL - at 77 bpm EKG Rhythm: Sinus Rhythm EKG Comparison: Other - different from prior EKG on 05/30/17. Summary of EKG Findings: T wave inversions in I, aVL, V4-V6. Chest Pain Course/Dx - Course Assessment/Plan: This pt is a 52 y/o male presenting to [facility] c/o chest pain today. Pt reports he started to feel pressure on his chest after work today. He notes that initially chest pain felt as if he wanted to belch but overtime it became worse. Currently he describes chest pressure "like someone is sitting on top of chest." Additional symptoms include SOB and lightheadedness, feeling like passing out. Denies fever, chills, nausea, diaphoresis, feeling clammy. Pt admits to occasional alcohol and tobacco use. Denies drug use. EKG shows a normal sinus rhythm with T-wave inversions which is different from a previous EKG done for this patient. In the ED course and the patient was given aspirin, nitroglycerin, and Lopressor for the chest pain. Test results without any significant abnormality except for creatinine 1.25, glucose 111, total CPK is 273, BMP is 111. Troponin is 0.00. Because of the patients symptoms and comorbidities I believe that the patient needs to be ruled out for an acute coronary syndrome. I discussed my physical exam, findings and test results with Dr. Shah from the hospitalist services and he agrees to admit patient to his services. Patient is hemodynamically stable, alert and oriented x 3. - Chest Pain Differential Diagnosis/HQI/PQRI: Acute AK, ACS, Angina, CHF, Chest Wall, GI Disease, Lower Respiratory Infection, Pulmonary Edema - Diagnoses Provider Diagnoses: Chest pain - Provider Notifications Discussed Care Of Patient With: Abdelrahman Shah - hospitalist Time Discussed With Above Provider: 18:05 Instructed by Provider To: Admit As Inpatient Discharge - Sign-Out/Discharge Documenting (check all that apply): Patient Departure - [place] [facility] [place] Discharge Plan Condition: Stable Disposition: ADMITTED TO [facility] - Billing Disposition and Condition Condition: STABLE Disposition: Admitted to [facility] - Attestation Statements Document Initiated by Timibe: Yes Documenting Scribe: Danelle Gomez Provider For Whom Meghan is Documenting (Include Credential): Cisco Miller MD Scribe Attestation: Danelle Bolanos, scribed for Cisco Miller MD on 07/14/18 at 0720. Scribe Documentation Reviewed: Yes Provider Attestation: The documentation as recorded by the Danelle weiner accurately reflects the service I personally performed and the decisions made by , Cisco Miller MD Status of Scribe Document: Viewed
[2018-07-13 17:30] LABS: ABS Basophils 0.1 10^3/ul (0-0.2); ABS Eosinophils 0.2 10^3/ul (0-0.6); ABS Lymphocytes 3.6 10^3/ul (1.0-4.8); ABS Monocytes 0.8 10^3/ul (0-0.8); ABS Nucleated RBC 0 10^3/ul; Eosinophil % 2.9 %; Hematocrit 47 % (42-52); Hemoglobin 15.5 g/dl (14.0-18.0); Lymphocyte % 46.7 %; Mean Corpuscular HGB Conc 33 g/dl (31-36); Mean Corpuscular Hemoglobin 28 pg (27-31); Mean Corpuscular Volume 85 fL (80-94); Mean Platelet Volume 8.2 fL (7.4-10.4); Nucleated Red Blood Cells % 0.1; Platelet Count 259 10^3/ul (150-450); Red Blood Count 5.47 10^6/ul (4.00-5.40); Red Cell Distribution Width 14 % (10.5-15); White Blood Count 7.8 10^3/ul (3.5-10.8)
[2018-07-13 17:50] LABS: Albumin 4.1 g/dL (3.2-5.2); Albumin/Globulin Ratio 1.5 (1-3); BUN/Creatinine Ratio 13.6 (8-20); Calcium 9.3 mg/dL (8.6-10.3); EGFR Non-African American 60.9 (>60); Globulin 2.8 g/dL (2-4); Total Bilirubin 0.3 mg/dL (0.2-1.0); Total Protein 6.9 g/dL (6.4-8.9)
[2018-07-13 18:19] LABS: Magnesium 2.1 mg/dL (1.9-2.7); Potassium 4.1 mmol/L (3.5-5.0)
[2018-07-13 18:27] LABS: TSH (Thyroid Stimulating Horm) 1.05 mcIU/mL (0.34-5.60)
[2018-07-13] MEDS ORDERED: Nitroglycerin TAB 0.4 MG* 0.4 MG TAB SL PRN (19:03)
--- NOTE | 2018-07-13 22:01 | HP ---
CC: Zander Villalba MD * HISTORY AND PHYSICAL: DATE OF ADMISSION: 07/13/18 PRIMARY CARE PROVIDER: Zander Villalba MD. ATTENDING PHYSICIAN: Dr. Shah * (dictated by SAM Lopez) CHIEF COMPLAINT: Chest pain. HISTORY OF PRESENT ILLNESS: Mr. Tay is a 52-year-old man with a past medical history of hyperlipidemia, hypertension, gastroesophageal reflux disease , who presented to the ER with complaints of chest pain. He states that he was working and when he stopped, he had a pressure in his chest that slowly increased in severity. He states that it felt like "I had to burp" and then it became a tightness and then a pressure, which he described as "weight on my chest." He also described an awareness of his heartbeat, shortness of breath that he described as "hard to breathe" and a short period of lightheadedness that lasted seconds. After the lightheadedness, the chest pain started to get better. He states that the pain began after he finished work for the day. This is his first day back to work after he learned that he cracked his right fifth rib last Thursday after a fall. He stated that the chest pain lasted approximately 30 to 45 minutes. The patient states that years ago he had a cardiac workup where they "did everything" in terms of testing. He was found to have gastroesophageal reflux disease. He states that the symptoms he had today were very different than those he experienced when he has heartburn. Patient denies diaphoresis, arm pain, numbness, or tingling in the extremities, palpitations, dizziness, changes in chest pain with position changes and history of pain similar to this in the past. He also denies radiation of the pain and nausea or vomiting. He did mention shortness of breath, chest pressure , and a short period of lightheadedness that occurred during the event. Currently, the patient is no longer experiencing any chest pain, it subsided on its own. While in the ER, lab studies were drawn and showed a slightly elevated total creatinine kinase and a 0.00 troponin and a BNP that was also slightly elevated. A chest x-ray was done that showed no evidence for acute disease. EKG showed nonspecific T-wave inversion in I, aVL, V4, V5, and V6. Previous EKG, which was done on 05/30/17 showed similar findings of nonspecific T-wave inversion in I, aVL and V4 while today's showed the same pattern in 2 additional leads of V5 and V6. The hospitalist group was asked to evaluate the patient for admission. PAST MEDICAL HISTORY: 1. Hyperlipidemia. 2. Hypertension. 3. Gastroesophageal reflux disease. 4. Patient is deaf in the left ear. PAST SURGICAL HISTORY: Nasal polyp removal. HOME MEDICATIONS: 1. Omeprazole 20 mg p.o. daily. 2. Losartan 50 mg p.o. daily. ALLERGIES: NKDA. FAMILY HISTORY: Patient denies any family history of heart disease, diabetes, or cancer, although he states his uncle of an CO. SOCIAL HISTORY: Patient denies ever having used tobacco. He states he drinks alcohol on the weekends, but does not drink during the week. Denies use of recreational drugs. 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 He is not , has no kids, and lives alone with his dog. He does not wish to appoint anyone to be his surrogate decision maker at this point in time. REVIEW OF SYSTEMS: A 10-point review of systems was performed and all the pertinent positives and negatives are in the HPI, all other systems are negative. PHYSICAL EXAMINATION GENERAL: Mr. Tay is a well-developed, well-nourished 52-year-old - [place] male who is sitting up in bed and is in no acute distress. He appears his stated age. He appears anxious, but is calm. VITAL SIGNS: Temperature is 98, heart rate 70, respiratory rate of 20, oxygen saturation 95%, blood pressure 130/97. HEENT: Visual mays are grossly intact. Pupils equally round and reactive to light and accommodation. Extraocular movements are intact. Sclerae without icterus. Hearing is grossly intact. Oral mucous membranes moist and without lesion. NECK: Full range of motion. Thyroid not palpable. Trachea midline. No lymphadenopathy. RESPIRATORY: Symmetrical chest expansion with no use of accessory muscles. Lungs, clear to auscultation. No rhonchi, wheezes, or rubs. CARDIOVASCULAR: Regular rate and rhythm. S1, S2 present. No murmurs, rubs, clicks, or gallops. No JVD. No carotid bruits. ABDOMEN: Bowel sounds in all 4 quadrants. Abdomen is soft, nontender to palpation without hepatosplenomegaly. MUSCULOSKELETAL: Digits without clubbing or cyanosis. No abnormalities. Pedal pulses 2+ bilaterally. Radial pulses 2+ bilaterally. NEURO: A and O x4. Moves all extremities. SKIN: Without rashes. Warm and smooth. DIAGNOSTIC STUDIES/LABORATORY DATA: WBC 7.8, RBC 5.47, Hgb 15.5, HCT 47. Sodium 139, potassium 4.1, chloride 109, carbon dioxide 23. BUN 17, creatinine 1.25, lactic acid 1.2. Magnesium 2.1. Total creatinine kinase 273. CK-MB 4.8. Troponin 0.00, BNP 111. TSH 1.05. EKG: Nonspecific T-wave inversion in I, aVL, V4, V5, V6. Chest x-ray, impression: No evidence for acute disease. ASSESSMENT AND PLAN: Mr. Tay is a 52-year-old male with a past medical history of hypertension, hyperlipidemia, gastroesophageal reflux disease, who presents to the ER today with complaints of chest pain. Patient will be admitted observation status for: 1. Chest pain: Repeat EKG if there is positive troponin, trend troponins x3. Echo and stress test ordered for the morning. CBC, BMP, and lipid profile for the morning. Nitro 0.4 mg sublingual q.5 minutes p.r.n. angina ordered. Aspirin 81 p.o. daily also ordered. 2. Hypertension. Continue losartan 50 mg p.o. daily. 3. Hyperlipidemia. Patient's chart shows a history of hyperlipidemia, although he does not appear to be on any medications, lipid panel ordered for the morning. 4. Gastroesophageal reflux disease. Continue omeprazole 20 mg p.o. daily. 5. FEN, n.p.o. after midnight for echo. 6. Code status: Full code. 7. DVT prophylaxis. Based on DVT risk assessment, the patient is low risk. COREY stockings and ambulation were ordered. TIME SPENT: Approximately 60 minutes was spent on this admission, greater than half of that time was spent with the patient obtaining my history, performing physical exam and reviewing the plan of care. This case has been reviewed with my attending, Dr. Shah, who is in agreement with this plan. SAM CONNELL [id number]/[facility] #: [id number] EAN
[2018-07-14 06:13] LABS: ABS Basophils 0.1 10^3/ul (0-0.2); ABS Eosinophils 0.3 10^3/ul (0-0.6); ABS Lymphocytes 2.9 10^3/ul (1.0-4.8); ABS Monocytes 0.7 10^3/ul (0-0.8); ABS Neutrophils 3.2 10^3/ul (1.5-7.7); ABS Nucleated RBC 0 10^3/ul; Eosinophil % 3.9 %; Hematocrit 48 % (42-52); Hemoglobin 15.5 g/dl (14.0-18.0); Lymphocyte % 40.6 %; Mean Corpuscular HGB Conc 33 g/dl (31-36); Mean Corpuscular Hemoglobin 28 pg (27-31); Mean Corpuscular Volume 86 fL (80-94); Mean Platelet Volume 7.9 fL (7.4-10.4); Nucleated Red Blood Cells % 0.1; Platelet Count 257 10^3/ul (150-450); Red Blood Count 5.53 10^6/ul (4.00-5.40); Red Cell Distribution Width 14 % (10.5-15); White Blood Count 7.1 10^3/ul (3.5-10.8)
[2018-07-14 06:28] LABS: BUN/Creatinine Ratio 12.3 (8-20); Calcium 9.1 mg/dL (8.6-10.3); EGFR Non-African American 67.7 (>60); HDL Cholesterol 52.8 mg/dL; Potassium 3.8 mmol/L (3.5-5.0)
[2018-07-14] MEDS ORDERED: Aspirin EC TAB* 81 MG TAB.EC PO SCH (09:00)
[2018-07-14] MEDS ORDERED: Losartan TAB* 25 MG PO SCH (09:00)
[2018-07-14] MEDS ORDERED: Pantoprazole TAB * 40 MG TAB PO SCH (09:00)
--- NOTE | 2018-07-14 11:46 | PN ---
Subjective Date of Service: 07/14/18 Interval History: HD # 2 52 yo M resented with CP, found to have non specific TWI and admitted for JUDY/ stress echo. Troponins remain flat overnight Overnight no acute events, VS T max 98. HR sinus 52-60, in sinus on tele, 97% RA , BP 129-143/62-73, troponin overnight as above. Voiding normally. NPO for stress echo This morning he is in his procedure initially, I re evaluate him on return and he has no acute complaints, denies CP.We had a long discussion about his neg NM test and normal echo, these were reassuring ot him, as he recounted the event he notes it did feel like he had indgestion, but he got more and more anxious as the sx progressed. He has been sx free now for the entire day and since last night. Objective Active Medications: Aspirin (Aspirin Ec Tab*) 81 mg PO DAILY EVELYNE Losartan Potassium (Cozaar Tab*) 50 mg PO DAILY EVELYNE Nitroglycerin (Nitroglycerin Tab 0.4 Mg*) 0.4 mg SL Q5M PRN PRN Reason: ANGINA Pantoprazole Sodium (Protonix Tab (Nf)) 40 mg PO DAILY [facility] Vital Signs - 8 hr 07/14/18 07/14/18 03:46 07:29 Temperature 97.4 F 97.9 F Pulse Rate 52 54 Respiratory 16 20 Rate Blood Pressure 130/71 129/73 (mmHg) O2 Sat by Pulse 94 97 Oximetry Oxygen Devices in Use Now: None Appearance: Pleasant man slt anxious Eyes: No Scleral Icterus Ears/Nose/Mouth/Throat: NL Teeth, Lips, Gums Neck: NL Appearance and Movements; NL JVP Respiratory: Symmetrical Chest Expansion and Respiratory Effort, Clear to Auscultation Cardiovascular: NL Sounds; No Murmurs; No JVD, RRR Abdominal: NL Sounds; No Tenderness; No Distention Lymphatic: No Cervical Adenopathy Extremities: No Edema Skin: No Rash or Ulcers Neurological: Alert and Oriented x 3 Result Diagrams: 07/14/18 05:59 07/14/18 05:59 Diagnostic Imaging: NM Stress: No e/o ischemia or infarct Echo: EF 55-60%. mild left ventricular hypertrophy is observed, global motion normal. no diastolic dysfxn. EKG Data: 07/14 AM Sinus with LAD, with TWI 1, 1vl, 2, 3, 4, 5, 6, no other acute changes Assess/Plan/Problems-Billing Assessment: 52 yo M with HTN, HLD, and GERD who presented with typical CP on 07/13. He had nonspecific EKG changes in the emergency room, normal vitals, and was admitted for r/o ACS, awaiting stress echo. - Patient Problems (1) Chest pain Current Visit: Yes Status: Acute Code(s): R07.9 - CHEST PAIN, UNSPECIFIED SNOMED Code(s): 51300701 Comment: - R/o ACS complete, pt is reassured and hets pain event most likely 2/2 GI upset and anxiety. - Trop x 3 neg - EKG with non specific diffuse TWI - s/p BB, Nitro, 325 asa on 07/13-reports his CP resolved prior to these (2) Hypertension Current Visit: No Status: Acute Code(s): I10 - ESSENTIAL (PRIMARY) HYPERTENSION SNOMED Code(s): 08246663 Comment: - Home losartan (3) GERD (gastroesophageal reflux disease) Current Visit: Yes Status: Acute Code(s): K21.9 - GASTRO-ESOPHAGEAL REFLUX DISEASE WITHOUT ESOPHAGITIS SNOMED Code(s): 554149079 Comment: - Diet ocntrolled (4) Hyperlipidemia Current Visit: Yes Status: Acute Code(s): E78.5 - HYPERLIPIDEMIA, UNSPECIFIED SNOMED Code(s): 14072953 Comment: - We discussed shraed decison making with statin he elects to continue discussion with PCP Status and Disposition: DC to home
--- NOTE | 2018-07-14 13:31 | ECHO ---
Patient: CHELE IYER [facility] Rec#: [id number] : 1965 Date: 07/14/2018 Age: 52y Height: 182.88 cm / 72.0 in Weight: 104.33 kg / 229.9 lbs Sex: M BSA: 2.26 Room#: [facility] Admit Date#: 07/13/2018 Type: Inpatient Referring: Maria Eugenia Adan Reading: Sofie Martinez MD Transplant Registered Nurse: Pily Gan,RDCS,RDMS CC: Zander Warren Transthoracic Echocardiogram Indication: CP BP: 130/71 HR: 54 Rhythm: Bradycardia Findings History: HTN, HLD Technical Comments: The study quality is good. Left Ventricle: The left ventricular chamber size is normal. Mild concentric left ventricular hypertrophy is observed. Basal interventricular septum shows moderate thickening. Global left ventricular wall motion and contractility are within normal limits. The estimated ejection fraction is 55-60%. There is no consistent Doppler evidence of clinically significant diastolic dysfunction. Left Atrium: The left atrium is mildly dilated. Right Ventricle: The right ventricular chamber size and systolic function are within normal limits. Right Atrium: The right atrial cavity size is normal. Aortic Valve: The aortic valve is trileaflet. Systolic excursion of the aortic valve is normal. There is no evidence of aortic regurgitation. There is no evidence of aortic stenosis. Mitral Valve: The mitral valve leaflets appear normal. There is a trace of mitral regurgitation. There is no evidence of mitral stenosis. Tricuspid Valve: The tricuspid valve leaflets are normal. There is trace tricuspid regurgitation. Pulmonic Valve: The pulmonic valve appears normal. There is a trace pulmonic regurgitation. not well seen due to gating problem. Pericardium: There is no significant pericardial effusion. Aorta: There is no dilatation of the ascending aorta. There is no dilatation of the aortic arch. There is mild dilatation of the aortic root. Pulmonary Artery: The main pulmonary artery appears normal. Venous: The inferior vena cava appears normal in size. There is a greater than 50% respiratory change in the inferior vena cava dimension. Conclusions Mild concentric left ventricular hypertrophy is observed. Global left ventricular wall motion and contractility are within normal limits. The estimated ejection fraction is 55-60%. There is no consistent Doppler evidence of clinically significant diastolic dysfunction. The right ventricular chamber size and systolic function are within normal limits. Compared with prior echo of 08/01/16, no significant changes. Measurements Name Value Normal Range RVIDd (AP) 2D 3.4 cm (0.9 - 2.6) RVDdMajor (2D) 3.5 cm (2.2 - 4.4) RAd ISD 4CH 4.6 cm (3.4 - 4.9) RA (A4C)W 3.3 cm (2.9 - 4.6) IVSd (2D) 1.8 cm (0.6 - 1) LVPWd (2D) 1.3 cm (0.6 - 1) LVIDd (2D) 4.8 cm (3.6 - 5.4) LVIDs (2D) 3 cm - LV FS (2D) 38 % (25 - 45) Aortic Annulus 2.5 cm (1.4 - 2.6) Ao root diameter (2D) 4 cm (2.1 - 3.5) Ascending Ao 3.4 cm (2.1 - 3.4) Aortic arch 2.9 cm (1.8 - 3.4) LA dimension (AP) 2D 4.1 cm (2.3 - 3.8) LAd ISD 4CH 5.8 cm (2.9 - 5.3) LA ISD 4CH W 4.9 cm (2.5 - 4.5) Name Value Normal Range LA ESV SP 4CH (A/L) 93.99 ml - LA ESV SP 2CH (A/L) 71.67 ml - LA ESV BP (A/L) 82.31 ml - LA ESV BP (A/L) index 36 ml/m2 - LA ESV SP 4CH (MOD) 88.8 ml - LA ESV SP 2CH (MOD) 68.83 ml - Name Value Normal Range MV E-wave Vmax 0.7 m/sec - MV deceleration time 250.5 msec - MV A-wave Vmax 0.5 m/sec - MV E:A ratio 1.5 ratio - P. vein S-wave Vmax 0.5 m/sec - P. vein D-wave Vmax 0.5 m/sec - P. vein S:D Vmax ratio 1.1 ratio - P. vein A-wave duration 114 msec - LV septal e' Vmax 0.06 m/sec - LV lateral e' Vmax 0.1 m/sec - LV E:e' septal ratio 12 ratio - LV E:e' lateral ratio 7 ratio - Name Value Normal Range AV Vmax 1.2 m/sec - AV VTI 27 cm - AV peak gradient 6 mmHg - AV mean gradient 3.5 mmHg - LVOT Vmax 0.9 m/sec - LVOT VTI 21 cm - LVOT peak gradient 3.3 mmHg - LVOT mean gradient 1.9 mmHg - SANA Vmax 1.4 m/sec - Name Value Normal Range RAP 8 mmHg - IVC diameter 1.6 cm - Name Value Normal Range PV Vmax 0.8 m/sec - PV peak gradient 2.6 mmHg -
[2018-07-14 13:50] VITALS: BP 133/72
--- NOTE | 2018-07-14 21:38 | DS ---
CC: Zander Villalba MD DISCHARGE SUMMARY: DATE OF ADMISSION: 07/13/18 DATE OF DISCHARGE: 07/14/18 PROVIDER: Jannet Murphy MD PRIMARY CARE PHYSICIAN: Zander Villalba MD PRIMARY DIAGNOSIS: Chest pain. SECONDARY DIAGNOSES: 1. Hypertension. 2. Hyperlipidemia. 3. Gastroesophageal reflux disease. 4. Also, the patient is deaf in the left ear. MEDICATIONS: At the time of discharge are: 1. Losartan 50 mg p.o. daily. 2. Omeprazole 20 mg p.o. daily. Med changes at the time of discharge are none. HISTORY OF PRESENT ILLNESS AND HOSPITAL COURSE: The patient is a 52-year-old man with a past medical history of hypertension, hyperlipidemia, GERD, who presented to the emergency room with complaints o f chest pain. He said he was working and when he got off work, he got in his car, he had a pressure in his chest that was epigastric initially, but then traveled upwards and then he also had the sense that he had shortness of breath at the same time. He had a short period of lightheadedness that last ed seconds and he decided to come to the emergency room. In the emergency room, his vital signs were stable. He had an EKG that showed nonspecific T-wave inversions in I, aVL, V4, V5, and V6. It was c ompared to a prior EKG which was done in 2017 which showed the same nonspecific T-wave inversion nic debra. Furthermore, he had labs done in the emergency room which showed unremarkable BMP and a troponi n of 0.00 and a BNP that was slightly elevated. A chest x-ray was done that showed no evidence for a cute disease. He was admitted to the hospitalist service for rule out acute coronary syndrome. Overnight, he was monitored on telemetry and his troponins were drawn every 3 hours for a total of 4 troponins. He had no acute events overnight. He was also scheduled for a nuclear medicine stress te st for the date of 07/14/18 as well as an echocardiogram for the date of 07/14/18. His troponins rem ained at 0.00 through the entirety of his hospitalization. His nuclear medicine scan was done, which was exercise. He was able to perform on the treadmill. He was able to exercise to a peak heart rat e of 154 beats per minute and there was no evidence of infarct or ischemia with normal perfusion duri ng stress. He had a left ventricular ejection fraction that was calculated to be 67%. He also had a n echocardiogram done that showed mild concentric left ventricular hypertrophy, but other than that, normal wall motion, EF 55% to 60% with no observed diastolic dysfunction. Upon return to the floor, the patient was counseled that his nuclear medicine stress test and echocardiogram were unremarkable deeming unlikely that this was acute coronary syndrome given non-elevated troponins and negative stre ss test. He was counseled on the importance of diet, exercise, and maintaining a heart-healthy lifes tyle. He wanted to discuss initiating a statin further with his primary care physician and we electe d that he could continue that conversation as an outpatient. His cholesterol was drawn in the hospit al and was noted to be mildly elevated with total cholesterol of 213 and LDL of 143. PHYSICAL EXAMINATION: On the day of discharge was notable for a slightly anxious man in bed. Regula r rate and rhythm with no murmurs, rubs, or gallops. Clear to auscultation bilaterally. Abdomen was nontender, nondistended with normoactive bowel sounds. He had no edema. REVIEW OF SYSTEMS: Review of systems was done. He had no further chest pain. A 10-point review of systems was done and negative on all accounts. DISCHARGE PLAN: Discharge plan was to discharge to home with followup with primary care. TIME SPENT: Thirty-five minutes at the bedside and planning discharge including patient care. [id number]/[facility] #: [id number]
== END 2018-07-14 15:15 | disposition home or self-care (01) ==
LOC: ED 16:49 → MEDTELE 18:52
PROVIDERS: ADMIT Internal Medicine; ATTEND Internal Medicine
DX: R07.9 Chest pain, unspecified (principal); I10 Essential (primary) hypertension; E78.5 Hyperlipidemia, unspecified; K21.9 Gastro-esophageal reflux disease without esophagitis; H91.92 Unspecified hearing loss, left ear; R06.02 Shortness of breath; R42 Dizziness and giddiness
CPT/HCPCS: 36415; 71045; 78452; 80048; 80053; 80061; 82550; 82553; 83605; 83735; 83880; 84443; 84484; 85025; 93005; 93017; 93306; 99284; A9270-GY; A9502; G0378

== ENCOUNTER 2019-05-30 07:28 | Emergency (ER) | payer OTHER ==
--- NOTE | 2019-05-30 07:47 | ED ---
Syncope/Near Syncope - HPI Summary HPI Summary: The patient is a 53 y/o M presenting to [facility] with a chief complaint of sudden onset near syncopal event this morning around 0600. He reports that he was outside shoveling snow and felt okay, but when he returned inside, he suddenly felt dizziness and faint. He did not completely have a syncopal event, but he experienced fast palpitations and very mild shortness of breath. He denies any chest pains. His symptoms have resolved. He has concern for his blood pressure because he stopped taking his medications after his pressures improved with losing weight. PMHx: angina, HLD, HTN, GERD. FHx: cardiac disease, PA in uncle, HTN. Nonsmoker, weekly EtOH, no substance use. Medications reviewed. Allergies noted. - History Of Current Complaint Chief Complaint: EDSyncope Time Seen by Provider: 05/30/19 07:36 Hx Obtained From: Patient Onset/Duration: Sudden Onset, Lasting Minutes, Resolved Timing: Minutes Activity At Onset: Other - came inside from shoveling Associated Head Trauma: No Aggravating Factor(s): Exertion Alleviating Factor(s): Spontaneous Resolution Associated Signs And Symptoms: Dizzy, Palpitations - fast, Shortness Of Breath - mild, Other - Negative: chest pain - Allergies/Home Medications Allergies/Adverse Reactions: Allergies Allergy/AdvReac Type Severity Reaction Status Date / Time No Known Allergies Allergy Verified 05/30/19 07:32 PMH/Surg Hx/FS Hx/Imm Hx Endocrine/Hematology History: Denies: Hx Diabetes, Hx Thyroid Disease Cardiovascular History: Reports: Hx Angina, Hx Hypercholesterolemia, Hx Hypertension, Other Cardiovascular Problems/Disorders - HIGH CHOLESTEROL Denies: Hx Coronary Artery Disease, Hx Myocardial Infarction, Hx Valvular Heart Disease Respiratory History: Denies: Hx Asthma, Hx Chronic Obstructive Pulmonary Disease (COPD) GI History: Reports: Hx Gastroesophageal Reflux Disease Denies: Hx Ulcer Sensory History: 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 Denies: Hx Contacts or Glasses Opthamlomology History: Denies: Hx Contacts or Glasses Psychiatric History: Denies: Hx Substance Abuse - denies - Cancer History Cancer Type, Location and Year: allergies - Surgical History Surgical History: Yes Surgery Procedure, Year, and Place: nose surgery - polyps removed Hx Anesthesia Reactions: No - Immunization History Date of Tetanus Vaccine: up to date Date of Influenza Vaccine: years ago Infectious Disease History: No Infectious Disease History: Denies: Hx Hepatitis, Hx Human Immunodeficiency Virus (HIV), Hx of Known/ Suspected MRSA, Traveled Outside the [place] in Last 30 Days - Family History Known Family History: Positive: Cardiac Disease - [place] (uncle), Hypertension Negative: Diabetes - Social History Alcohol Use: Weekly Alcohol Amount: weekends Hx Substance Use: No Substance Use Type: Reports: None Hx Tobacco Use: No Smoking Status (MU): Never Smoked Tobacco Review of Systems Positive: Palpitations - fast. Negative: Chest Pain Positive: Shortness Of Breath - mild Neurological: Other - near syncope, dizziness All Other Systems Reviewed And Are Negative: Yes Physical Exam - Summary Physical Exam Summary: VITAL SIGNS: Reviewed. GENERAL: Patient is a well-developed and nourished male who is lying comfortable in the stretcher. Patient is not in any acute respiratory distress. HEAD AND FACE: No signs of trauma. No ecchymosis, hematomas or skull depressions. No sinus tenderness. EYES: PERRLA, EOMI x 2, No injected conjunctiva, no nystagmus. No photophobia. EARS: Hearing grossly intact. Ear canals and tympanic membranes are within normal limits. MOUTH: Oropharynx within normal limits. NECK: Supple, trachea is midline, no adenopathy, no JVD, no carotid bruit, no c- spine tenderness, neck with full ROM. No meningeal signs, no Kernig's or brudzinskis signs. CHEST: Symmetric, no tenderness at palpation. LUNGS: Clear to auscultation bilaterally. No wheezing or crackles. CVS: Regular rate and rhythm, S1 and S2 present, no murmurs or gallops appreciated. ABDOMEN: Soft, non-tender. No signs of distention. No rebound, no guarding, and no masses palpated. Bowel sounds are normal. EXTREMITIES: FROM in all major joints, no edema, no cyanosis or clubbing. NEURO: Alert and oriented x 3. No acute neurological deficits. Speech is normal and follows commands. SKIN: Dry and warm. GCS: 15. Triage Information Reviewed: Yes Vital Signs On Initial Exam: Initial Vitals Temp Pulse Resp BP Pulse Ox 97.3 F 86 20 153/102 95 05/30/19 07:30 05/30/19 07:30 05/30/19 07:30 05/30/19 07:30 05/30/19 07:30 Vital Signs Reviewed: Yes - Karla Coma Scale Best Eye Response: 4 - Spontaneous Best Motor Response: 6 - Obeys Commands Best Verbal Response: 5 - Oriented Coma Scale Total: 15 Procedures - Sedation Patient Received Moderate/Deep Sedation with Procedure: No Diagnostics - Vital Signs Vital Signs Temp Pulse Resp BP Pulse Ox 05/30/19 07:30 97.3 F 86 20 153/102 95 - Laboratory Result Diagrams: 05/30/19 07:54 05/30/19 07:54 Lab Statement: Any lab studies that have been ordered have been reviewed, and results considered in the medical decision making process. - Radiology Chest X-Ray Radiology Interpretation Completed By: Radiologist Summary of Radiographic Findings: Impression: No active cardiopulmonary disease. ED physician has reviewed this report. - CT Brain CT CT Interpretation Completed By: Radiologist Summary of CT Findings: Impression: No acute intracranial pathology. ED physician has reviewed this report. - EKG 0810 Cardiac Rate: NL - 72 BPM EKG Rhythm: Sinus Rhythm EKG Comparison: No Significant Change - Similar to previous taken on 07/14/18. Summary of EKG Findings: EKG at 0810 reveals normal sinus rhythm at [address] elevations. ED physician has reviewed and interpreted this EKG. Re-Evaluation - Re-Evaluation First Eval Re-Evaluation Time: 10:30 Change: Improved Comment: We discussed all results and plan for discharge. Course/Dx Assessment/Plan: This patient is a 53-year-old male who presents to the emergency department with a chief complaint of having dizziness. Patient denies any chest pains with fast palpitations that he was experiencing. Blood test results without any significant abnormality except for hematocrit of 53 and creatinine of 1.5. EKG is normal sinus rhythm without any ST elevations. Chest x -ray impression: No active cardiopulmonary disease. In the ED course, the patient is hypertensive. The patient was given Lisinopril and Hydrochlorothiazide. After these medications, the patient is feeling better. I did not initially perform a head CT since the patients neurological exam is completely normal. Patient has no acute neurological focal deficits. Head CT impression: No acute intracranial pathology. Multiple neurological exams and ED , patient continues to be within normal limits. At this point, I discussed all the findings and test results with the patient. Patient was instructed to return to the emergency room immediately if any of the symptoms return or worsen. Patient understands and agrees. Neurological exam before discharge: Patient is alert and oriented x 3. No acute neurological deficits. Patient's vital signs are stable. Patient is to follow up with CPP in the next 2 3 days. They understand and agree. The plan of care was discussed with the patient and patient understands and agrees with the plan of care. All questions were answered at patient satisfaction. There were no further complaints or concerns. - Diagnoses Differential Diagnosis/HQI/PQRI: Positive: Coronary Artery Disease, Dysrhythmia , Hyperventilation, Metabolic Reaction, Myocardial Infarction, Medication Reaction Provider Diagnoses: Uncontrolled hypertension, Dizziness Discharge ED - Sign-Out/Discharge Documenting (check all that apply): Patient Departure - Patient will be discharged home. - Discharge Plan Condition: Stable Disposition: HOME Prescriptions: Lisinopril/Hydrochlorothiazide [Lisinopril-Hctz 10-12.5 mg Tab] 1 each PO DAILY #30 tablet Patient Education Materials: Hypertension (ED), Near Syncope (ED), Dizziness ( ED) Referrals: Zander Del Rosario MD [Primary Care Provider] - 3 Days Additional Instructions: Follow up with your primary care provider in 2-3 days. Return to the emergency department for any new or worsening symptoms. - Billing Disposition and Condition Condition: STABLE Disposition: Home - Attestation Statements Document Initiated by Meghan: Yes Documenting Scribe: Yessenia Jacob Provider For Whom Meghan is Documenting (Include Credential): Dr. Cisco Miller MD Scribe Attestation: Yessenia Bolanos scribed for Dr. Cisco Miller MD on 05/31/19 at 0719. Scribe Documentation Reviewed: Yes Provider Attestation: The documentation as recorded by the Yessenia weiner accurately reflects the service I personally performed and the decisions made by me, Dr. Cisco Miller MD Status of Meghan Document: Viewed
[2019-05-30 08:02] LABS: ABS Eosinophils 0.3 10^3/ul (0-0.6); ABS Lymphocytes 1.9 10^3/ul (1.0-4.8); ABS Monocytes 0.7 10^3/ul (0-0.8); ABS Neutrophils 3.9 10^3/ul (1.5-7.7); Eosinophil % 3.9 %; Hematocrit 53 % (42-52); Hemoglobin 17.9 g/dL (14.0-18.0); Lymphocyte % 28.3 %; Mean Corpuscular HGB Conc 34 g/dL (31-36); Mean Corpuscular Hemoglobin 29 pg (27-31); Mean Corpuscular Volume 86 fL (80-94); Nucleated Red Blood Cells % 0.1; Platelet Count 267 10^3/uL (150-450); Red Blood Count 6.12 10^6 /uL (4.18-5.48); Red Cell Distribution Width 14 % (10-15); White Blood Count 6.9 10^3/uL (3.5-10.8)
[2019-05-30 08:19] LABS: Albumin 4.4 g/dL (3.2-5.2); Albumin/Globulin Ratio 1.2 (1-3); C Reactive Protein 2.54 mg/L (<8.01); Calcium 9.8 mg/dL (8.6-10.3); EGFR African American 59.5 (>60); EGFR Non-African American 49.1 (>60); Globulin 3.6 g/dL (2-4); Potassium 4.2 mmol/L (3.5-5.0); Total Bilirubin 0.5 mg/dL (0.2-1.0)
[2019-05-30] MEDS ORDERED: Lisinopril TAB* 10 MG PO ONE (08:53)
[2019-05-30] MEDS ORDERED: Hydrochlorothiazide TAB* 25 MG PO ONE (08:53)
[2019-05-30 08:54] LABS: TSH (Thyroid Stimulating Horm) 1.25 mcIU/mL (0.34-5.60)
[2019-05-30 10:53] VITALS: BP 134/78
== END 2019-05-30 10:52 | disposition home or self-care (01) ==
LOC: ED 07:28
DX: I10 Essential (primary) hypertension (principal); R42 Dizziness and giddiness; E78.00 Pure hypercholesterolemia, unspecified; K21.9 Gastro-esophageal reflux disease without esophagitis
CPT/HCPCS: 36415; 70450; 71046; 80053; 83605; 83735; 83880; 84443; 84484; 85025; 86140; 93005; 99283; A9270-GY

== ENCOUNTER 2019-06-06 13:52 | Emergency (ER) | payer OTHER ==
[2019-06-06] MEDS ORDERED: Aspirin 81 mg CHEW TAB* 81 MG TAB.CHEW PO ONE (14:10)
--- NOTE | 2019-06-06 14:14 | ED ---
HPI Chest Pain - HPI Summary HPI Summary: The patient is a 53-year-old male [place] [facility] [place] with a chief complaint of persistent left anterior chest pain onset this morning. The pain is described as a cramping sensation rated 6/10 in severity. He denies any nausea, vomiting, or dizziness. Deep breathing aggravates the pain. There are no alleviating factors. He reports that he has intermittent episodes of similar pain which he often attributes to GERD, but this episode has lasted all day instead of for a few seconds as usual despite using Omeprazole. PMHx: GERD, angina, hyperlipidemia, hypertension. FHx: cardiac disease, hypertension. Nonsmoker, weekly EtOH, no substance use. Medications reviewed. Allergies noted. - History of Current Complaint Chief Complaint: EDChestPainROMI Time Seen by Provider: 06/06/19 14:01 Hx Obtained From: Patient Onset/Duration: Started Hours Ago, Still Present Timing: Constant, Lasting Hours Initial Severity: Moderate Current Severity: Moderate Pain Intensity: 6 Pain Scale Used: 0-10 Numeric Chest Pain Location: Left Anterior Chest Pain Radiates: No Character: Other: - cramping Aggravating Factor(s): Deep Breaths Alleviating Factor(s): Nothing Associated Signs and Symptoms: Positive: Chest Pain. Negative: Dizziness, Nausea, Vomiting - Additional Pertinent History Primary Care Physician: [id number] - Allergy/Home Medications Allergies/Adverse Reactions: Allergies Allergy/AdvReac Type Severity Reaction Status Date / Time No Known Allergies Allergy Verified 05/30/19 07:32 Home Medications: Home Medications Losartan TAB* [Cozaar TAB*] 25 mg PO DAILY 06/06/19 [History Confirmed 06/06/19] Omeprazole CAP (NF) [Prilosec CAP* 20 MG] 20 mg PO DAILY 06/06/19 [History Confirmed 06/06/19] PMH/Surg Hx/FS Hx/Imm Hx Endocrine/Hematology History: Denies: Hx Diabetes, Hx Thyroid Disease Cardiovascular History: Reports: Hx Angina, Hx Hypercholesterolemia, Hx Hypertension, Other Cardiovascular Problems/Disorders - HIGH CHOLESTEROL Denies: Hx Coronary Artery Disease, Hx Myocardial Infarction, Hx Valvular Heart Disease Respiratory History: Denies: Hx Asthma, Hx Chronic Obstructive Pulmonary Disease (COPD) GI History: Reports: Hx Gastroesophageal Reflux Disease Denies: Hx Ulcer Sensory History: 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 Denies: Hx Contacts or Glasses Opthamlomology History: Denies: Hx Contacts or Glasses Psychiatric History: Denies: Hx Substance Abuse - denies - Cancer History Cancer Type, Location and Year: allergies - Surgical History Surgical History: Yes Surgery Procedure, Year, and Place: nose surgery - polyps removed Hx Anesthesia Reactions: No - Immunization History Date of Tetanus Vaccine: up to date Date of Influenza Vaccine: years ago Infectious Disease History: No Infectious Disease History: Denies: Hx Hepatitis, Hx Human Immunodeficiency Virus (HIV), Hx of Known/ Suspected MRSA, Traveled Outside the [place] in Last 30 Days - Family History Known Family History: Positive: Cardiac Disease - [place] (uncle), Hypertension Negative: Diabetes - Social History Alcohol Use: Weekly Alcohol Amount: weekends Hx Substance Use: No Substance Use Type: Reports: None Hx Tobacco Use: No Smoking Status (MU): Never Smoked Tobacco Review of Systems Positive: Chest Pain - left anterior, cramping Negative: Vomiting, Nausea Neurological: Other - Negative: dizziness All Other Systems Reviewed And Are Negative: Yes Physical Exam - Summary Physical Exam Summary: VITAL SIGNS: Reviewed. GENERAL: Patient is a well-developed and nourished male who is lying comfortable in the stretcher. Patient is not in any acute respiratory distress. HEAD AND FACE: No signs of trauma. No ecchymosis, hematomas or skull depressions. No sinus tenderness. EYES: PERRLA, EOMI x 2, No injected conjunctiva, no nystagmus. EARS: Hearing grossly intact. Ear canals and tympanic membranes are within normal limits. MOUTH: Oropharynx within normal limits. NECK: Supple, trachea is midline, no adenopathy, no JVD, no carotid bruit, no c- spine tenderness, neck with full ROM. CHEST: Symmetric, no tenderness at palpation. LUNGS: Clear to auscultation bilaterally. No wheezing or crackles. CVS: Regular rate and rhythm, S1 and S2 present, no murmurs or gallops appreciated. ABDOMEN: Soft, non-tender. No signs of distention. No rebound, no guarding, and no masses palpated. Bowel sounds are normal. EXTREMITIES: FROM in all major joints, no edema, no cyanosis or clubbing. NEURO: Alert and oriented x 3. No acute neurological deficits. Speech is normal and follows commands. SKIN: Dry and warm. Triage Information Reviewed: Yes Vital Signs On Initial Exam: Initial Vitals Temp Pulse Resp BP Pulse Ox 98.0 F 73 19 146/73 100 06/06/19 13:58 06/06/19 13:58 06/06/19 13:58 06/06/19 13:58 06/06/19 13:58 Vital Signs Reviewed: Yes Procedures - Sedation Patient Received Moderate/Deep Sedation with Procedure: No Diagnostics - Vital Signs Vital Signs Temp Pulse Resp BP Pulse Ox 06/06/19 13:58 98.0 F 73 19 146/73 100 - Laboratory Result Diagrams: 06/06/19 14:07 06/06/19 14:07 Lab Statement: Any lab studies that have been ordered have been reviewed, and results considered in the medical decision making process. - Radiology Chest X-Ray Radiology Interpretation Completed By: Radiologist Summary of Radiographic Findings: Impression: No radiographic evidence of acute cardiopulmonary disease. ED physician has reviewed this report. - EKG 1354 Cardiac Rate: NL - 70 BPM EKG Rhythm: Sinus Rhythm EKG Comparison: No Significant Change - Similar to previous EKG done on 05/30/19. Summary of EKG Findings: An EKG at 1354 reveals normal sinus rhythm at [address] elevations. ED physician has reviewed and interpreted this EKG. Re-Evaluation - Re-Evaluation First Eval Re-Evaluation Time: 17:05 Change: Improved Comment: Patient refuses second troponin. We discussed results and plan for discharge. Chest Pain Course/Dx - Course Assessment/Plan: The patient is a 53-year-old male [place] [facility] [place] with a chief complaint of persistent left anterior chest pain onset this morning. The pain is described as a cramping sensation rated 6/10 in severity. He denies any nausea, vomiting, or dizziness. Deep breathing aggravates the pain. There are no alleviating factors. He reports that he has intermittent episodes of similar pain which he often attributes to GERD, but this episode has lasted all day instead of for a few seconds as usual despite using Omeprazole. PMHx: GERD, angina, hyperlipidemia, hypertension. FHx: cardiac disease, hypertension. Nonsmoker, weekly EtOH, no substance use. Medications reviewed. Allergies noted. Blood results without any significant abnormality except for creatinine of 1.34 and glucose of 103. Troponin is 0.00. EKG is a normal sinus rhythm at [address] elevation, similar to previous EKG done on 05/30/19. At this time, the patient reports that he is feeling better, and he doesnt want to wait for a second troponin. He thinks that he has reflux, and that is the reason why he has the symptoms. The patient understands the risk of leaving without the second troponin, and he is comfortable with that. I discussed all the findings and test results with the patient. Patient was instructed to return to the emergency room immediately if any of the symptoms return or worsen. Plan of care was discussed with the patient and understands and agrees. All questions were answered at patient satisfaction. There were no further complaints or concerns. Lung exam before discharge: CTA B/L. Good air exchange. No wheezing or crackles heard. CVS: S1 and S2 present. No murmurs appreciated. Patient is alert and oriented x 3. Patient is hemodynamically stable. Patient will be discharged home with follow up PCP in the next 2-3 days. - Chest Pain Differential Diagnosis/HQI/PQRI: Acute [place], ACS, Angina, CHF, Chest Wall, GI Disease, Lower Respiratory Infection, Pulmonary Edema - Diagnoses Provider Diagnoses: Atypical chest pain Discharge ED - Sign-Out/Discharge Documenting (check all that apply): Patient Departure - Patient will be discharged home. - Discharge Plan Condition: Stable Disposition: HOME Patient Education Materials: Chest Pain (DC) Referrals: Zander Del Rosario MD [Primary Care Provider] - 3 Days Additional Instructions: Follow up with your primary care provider in 2-3 days. Return to the emergency department for any new or worsening symptoms. - Billing Disposition and Condition Condition: STABLE Disposition: Home - Attestation Statements Document Initiated by Meghan: Yes Documenting Scribe: Yessenia Jacob Provider For Whom Meghan is Documenting (Include Credential): Dr. Cisco Miller MD Scribe Attestation: Yessenia Bolanos scribed for Dr. Cisco Miller MD on 06/06/19 at 1856. Scribe Documentation Reviewed: Yes Provider Attestation: The documentation as recorded by the Yessenia weiner accurately reflects the service I personally performed and the decisions made by me, Dr. Cisco Miller MD Status of Scribe Document: Viewed
[2019-06-06 14:16] LABS: ABS Eosinophils 0.2 10^3/ul (0-0.6); ABS Lymphocytes 2.9 10^3/ul (1.0-4.8); ABS Monocytes 0.9 10^3/ul (0-0.8); ABS Neutrophils 3.1 10^3/ul (1.5-7.7); Eosinophil % 2.8 %; Hematocrit 52 % (42-52); Hemoglobin 17.3 g/dL (14.0-18.0); Mean Corpuscular HGB Conc 33 g/dL (31-36); Mean Corpuscular Hemoglobin 29 pg (27-31); Mean Corpuscular Volume 88 fL (80-94); Mean Platelet Volume 7.6 fL (7.4-10.4); Nucleated Red Blood Cells % 0.2; Platelet Count 294 10^3/uL (150-450); Red Blood Count 5.92 10^6 /uL (4.18-5.48); Red Cell Distribution Width 14 % (10-15); White Blood Count 7.2 10^3/uL (3.5-10.8)
[2019-06-06 14:26] LABS: INR 1.01 (0.82-1.09)
[2019-06-06 14:37] LABS: ALT 29 U/L (7-52); Albumin 4.1 g/dL (3.2-5.2); Albumin/Globulin Ratio 1.2 (1-3); Alkaline Phosphatase 47 U/L (34-104); BUN/Creatinine Ratio 13.4 (8-20); Blood Urea Nitrogen 18 mg/dL (6-24); CO2 Carbon Dioxide 25 mmol/L (22-32); Calcium 9.7 mg/dL (8.6-10.3); Chloride 102 mmol/L (101-111); EGFR African American 67.7 (>60); Globulin 3.5 g/dL (2-4); Glucose 103 mg/dL (70-100); Sodium 135 mmol/L (135-145); Total Protein 7.6 g/dL (6.4-8.9)
[2019-06-06 14:38] LABS: Anion Gap 8 mmol/L (2-11)
[2019-06-06 19:23] VITALS: BP 135/99
== END 2019-06-06 17:37 | disposition home or self-care (01) ==
LOC: ED 13:52
DX: R07.89 Other chest pain (principal); E78.00 Pure hypercholesterolemia, unspecified; I10 Essential (primary) hypertension; K21.9 Gastro-esophageal reflux disease without esophagitis; Z79.899 Other long term (current) drug therapy
CPT/HCPCS: 36415; 71046; 80053; 84484; 85025; 85610; 93005; 99282; A9270-GY

== ENCOUNTER 2021-09-30 06:03 | Observation (INO) ==
[2021-09-30 07:04] LABS: ABS Eosinophils 0.3 10^3/ul (0-0.6); ABS Lymphocytes 1.5 10^3/ul (1.0-4.8); ABS Monocytes 0.8 10^3/ul (0-0.8); ABS Neutrophils 2.9 10^3/ul (1.5-7.7); Eosinophil % 5.1 %; Hematocrit 46 % (42-52); Hemoglobin 15.2 g/dL (14.0-18.0); Lymphocyte % 27.8 %; Mean Corpuscular HGB Conc 34 g/dL (31-36); Mean Corpuscular Hemoglobin 29 pg (27-31); Mean Corpuscular Volume 87 fL (80-94); Nucleated Red Blood Cells % 0.1; Platelet Count 266 10^3/uL (150-450); Red Blood Count 5.24 10^6 /uL (4.18-5.48); Red Cell Distribution Width 14 % (10-15); White Blood Count 5.5 10^3/uL (3.5-10.8)
[2021-09-30 07:11] LABS: INR 1.08 (0.86-1.15)
[2021-09-30 07:46] LABS: Albumin 3.9 g/dL (3.2-5.2); Albumin/Globulin Ratio 1.5 (1-3); Calcium 9.1 mg/dL (8.6-10.3); Globulin 2.6 g/dL (2-4); Potassium 3.8 mmol/L (3.5-5.0); Total Bilirubin 0.5 mg/dL (0.2-1.0); Total Protein 6.5 g/dL (6.4-8.9); eGFR CKD-EPI 66.7 (>60)
[2021-09-30 08:34] LABS: High Sensitivity Troponin 1 Hr 4 pg/mL (<20)
[2021-09-30] MEDS ORDERED: Albuterol HFA INHALER 8 gm MDI INH PRN (11:42)
[2021-09-30 12:02] LABS: HDL Cholesterol 51.9 mg/dL
[2021-09-30 14:28] VITALS: BP 133/81
== END 2021-09-30 14:38 | disposition home or self-care (01) ==
LOC: EDHOLD 06:03 → ED 06:03 → SUATTDRO 11:00 → EDHOLD 14:36
PROVIDERS: ADMIT Internal Medicine; ATTEND Internal Medicine